=== PATIENT | male | born 1965 | race Caucasian/White ===

== ENCOUNTER 2016-09-08 18:35 | Inpatient (IN) | payer MEDICAID ==
--- NOTE | 2016-09-08 19:02 | ED Physician Chart ---
Chief Complaint/HPI - Patient Information Date Seen:: 09/08/16 Time Seen:: 18:45 Chief Complaint:: Diarrhea History of Present Illness:: onset x 2 days of N/V/D, generalized, crampy, intermittent, Abdominal Pain; pt denies H/As, neck pain, C/P, SOB, A/C, fever, chills, or urinary s/s Allergies:: Allergies Allergy/AdvReac Type Severity Reaction Status Date / Time No Known Allergies Allergy Verified 09/08/16 18:48 Vitals:: Vital Signs - 8 hr 09/08/16 18:48 Temp 99.4 F HR 74 RR 16 BP 104/68 O2 Sat % 97 Historian:: Patient, Family Member Review:: Nurse's Note Reviewed Review of Systems - Review of Systems General/Constitutional: Fever, Chills, No weight loss, No weakness, No diaphoresis, No edema, No loss of appetite Skin: No skin lesions, No rash, No bruising Head: No headache, No light-headedness Eyes: No loss of vision, No pain, No diplopia ENT: No earache, No nasal drainage, No sore throat, No tinnitus Neck: No neck pain, No swelling, No thyromegaly, No stiffness, No mass noted Cardio Vascular: No chest pain, No palpitations, No PND, No orthopnea, No edema Pulmonary: No SOB, No cough, No sputum, No wheezing GI: Nausea, Vomiting, Diarrhea, Pain, No melena, No hematochezia, No constipation, No hematemesis G/U: No dysuria, No frequency, No hematuria, No nacturia Musculoskeletal: No bone or joint pain, No back pain, No muscle pain Endocrine: Polyuria, Polydipsia Psychiatric: No prior psych history, No depression, No anxiety, No suicidal ideation, No homicidal ideation, No auditory hallucination, No visual hallucination Hematopoietic: No bruising, No lymphadenopathy Allergic/Immuno: No urticaria, No angioedema Neurological: No syncope, No focal symptoms, No weakness, No paresthesia, No headache, No seizure, No dizziness, No confusion, No vertigo Past Medical History - Past Medical History Obtainable: Yes Past Medical History: DM Family History: Diabetes Melitus Social History: Non Smoker, No Alcohol, No Drug Use, Single Surgical History: None Psychiatricy History: None Medication: Reviewed Family Medical History - Family Member Father Hx Family Cancer: No Hx Family Congestive Heart Failure: No Hx Family Hypertension: No Hx Family Stroke: No Hx Family Diabetes: No Hx Family AIDS: No Hx Family HIV: No Physical Exam - Physical Examination General/Constitutional: Awake, Well-developed, well-nourished, Alert, No distress, GCS 15, Non-toxic appearing, Ambulatory Head: Atraumatic Eyes: Lids, conjuctiva normal, PERRL, EOMI Skin: Nl inspection, No rash, No skin lesions, No ecchymosis, Well hydrated, No lymphadenopathy ENMT: External ears, nose nl, Nasal exam nl, Lips, teeth, gums nl Neck: Nontender, Full ROM w/o pain, No JVD, No nuchal rigidity, No bruit, No mass, No stridor Respiratory: Nl effort/Exclusion, Clear to Auscultation, No Wheeze/Rhonchi/Rales Cardio Vascular: RRR, No murmur, gallop, rubs, NL S1 S2 GI: No tenderness/rebounding/guarding, No organomegaly, No hernia, Normal BS's, Nondistended, No mass/bruits, No McBurney tenderness : No CVA tenderness Extremities: No tenderness or effusion, Full ROM, normal strength in all extremities, No edema, Normal digits & nails Neuro/Psych: Alert/oriented, DTR's symmetric, Normal sensory exam, Normal motor strength, Judgement/insight normal, Mood normal, Normal gait, No focal deficits Misc: normal gait, Normal back, No paraspinal tenderness Labs/Radiology/EKG Results - Lab Results Results: Glucose: 456; Na+: 132 - EKG Interpretations Rate & Rhythm: NSR Comments:: Non-Specific ST-T Changes ED Septic Shock - . Is Septic Shock (SBP<90, OR Lactate>4 mmol\L) present?: No - <6hrs of presentation: Vital Signs: Vital Signs - 8 hr 09/08/16 18:48 Temp 99.4 F HR 74 RR 16 BP 104/68 O2 Sat % 97 Reassessment (Disposition) - Reassessment Reassessment Condition:: Improved - Diagnosis Diagnosis:: Uncontrolled Diabetes Mellitus; Hyponatremia; Hyperglycemia; DM; AGE; Diarrhea; Vomiting; Gastroenteritis; Diabetic Gastroparesis - Aftercare/Follow up Instructions Aftercare/Follow-Up Instructions:: Counseled pt regarding lab results/diagnosis & need follow up, Counseled pt & family regarding lab results/diagnosis & need follow up - Patient Disposition Discharge/Transfer:: Acute Care w/in this hosp Accepting Physician:: Dr. Calvillo Time Called:: 2139 Time Responded:: 21:40 Admitted to:: Med/Surg Spoke to:: Dr. Calvillo Admitting Medical Physician:: Dr. Calvillo Condition at Disposition:: Stable, Improved
[2016-09-08] MEDS ORDERED: Sodium Chloride 0.9% 1,000 ML IV ONE (19:03)
[2016-09-08 19:20] LABS: % BASOPHILS 0.1 % (0.0-2.0); % EOSINOPHILS 0.1 % (0.0-5.0); % LYMPHOCYTES 10.2 % (20.0-50.0); % MONOCYTES 10.9 % (2.0-10.0); % NEUTROPHILS 78.7 % (40.0-80.0); HEMATOCRIT 38.8 % (39.0-49.0); HEMOGLOBIN 13.1 gm/dL (13.2-17.3); MEAN CELL VOLUME 87.9 fl (80-99); MEAN CORPUSCULAR HEMOGLOBIN 29.8 pg (26.0-30.0); MEAN CORPUSCULAR HGB CONC 33.9 pg (28.0-36.0); MEAN PLATELET VOLUME 9.2 fl; NEUTROPHILE ABSOLUTE 9.2 Th/cmm (1.8-8.0); PLATELET COUNT 185 Th/cmm (150-400); RED BLOOD COUNT 4.42 Mil/cmm (4.30-5.70); RED CELL DISTRIBUTION WIDTH 12.3 % (11.5-20.0); WHITE BLOOD COUNT 11.7 Th/cmm (4.8-10.8)
[2016-09-08 19:38] LABS: TROP I 0.01 ng/mL (0.01-0.05)
[2016-09-08 19:39] LABS: INR 1.06 (0.5-1.4)
[2016-09-08 19:40] LABS: ALB/GLOB RATIO 1.1 (1.0-1.8); ALKALINE PHOSPHATASE 45 U/L (34-104); ANION GAP 12.4 (7.0-16.0); BILIRUBIN,TOTAL 0.9 mg/dL (0.3-1.0); BUN - UREA NITROGEN 36 mg/dL (7-25); BUN/CREATININE RATIO 25.7; CARBON DIOXIDE 26.1 mEq/L (21.0-31.0); CHLORIDE 97 mEq/L (98-107); CHOLESTEROL 151 mg/dL (<200); CREATININE - SERUM 1.4 mg/dL (0.7-1.3); POTASSIUM SERUM 3.5 mEq/L (3.5-5.1); SGOT 10 U/L (13-39); SGPT/ALT 10 U/L (7-52); SODIUM SERUM 132 mEq/L (136-145); TRIGLYCERIDES 112 mg/dL (<150)
[2016-09-08 19:41] LABS: AMYLASE SERUM 36 U/L (29-103); LIPASE 14 U/L (11-82)
[2016-09-08 19:44] LABS: BNP 27.3 pg/mL (5.0-100.0)
[2016-09-08 20:01] LABS: GLUCOSE 456 mg/dL (70-105)
[2016-09-08] MEDS ORDERED: INSULIN HUMAN REGULAR 100 UNITS/ML UNIT SUBQ ONE (20:37)
[2016-09-08] MEDS ORDERED: INSULIN HUMAN REGULAR 100 UNITS/ML UNIT ONE (20:43)
[2016-09-08 22:37] VITALS: BP 126/80
--- NOTE | 2016-09-08 23:30 | Admit Criteria Form ---
Admit Criteria Forms - Admit Criteria Diagnosis: DIABETES Clinical Indications for Admission to Inpatient Care (Place 'X' for any and all applicable criteria): Admission is indicated by presence of ALL (if I & II) or ANY ONE (if III or IV) of the following (1)(2)(3)(4): [ ]I. Diabetes is uncontrolled as indicated by ANY ONE of the following: [ ]a) Diabetic ketoacidosis as indicated by ALL of the following (8): [ ]i) Hyperglycemia (eg, plasma glucose greater than 200 mg/ dL (11.1 mmol/L)) [ ]ii) Acidosis (eg, arterial pH less than 7.30, serum bicarbonate level less than 15 mEq/L (mmol/L)) [ ]iii) Moderate ketonuria or ketonemia [ ]b) Hyperglycemic hyperosmolar state as indicated by ALL of the following(9)(10): [ ]i) Neurologic dysfunction (eg, stupor, coma, hemiparesis , seizure)(13) [ ]ii) Plasma glucose greater than 600 mg/dL (33.3 mmol/L) [ ]iii) Serum osmolality greater than 320 mOsm/kg (mmol/kg) [ ]c) Severe signs or symptoms secondary to hyperglycemia indicated by ANY ONE of the following: [ ]i) Altered mental status(10) [ ]ii) Significant hypovolemia or dehydration [ ]iii) Intractable nausea or vomiting [ ]iv) Unexplained fever or severe infection [ ]v) Severe electrolyte abnormality (eg, hypokalemia, hyperkalemia, hypernatremia) [ ]II. Management at other levels of care (Also use Diabetes: Observation Care as appropriate) is not feasible because of ANY ONE of the following: [ ]a) Condition was not adequately corrected with treatment at other levels of care. [ ]b) Treatment at other levels of care is not appropriate because of condition severity (eg, hyperosmolar coma). [ ]III. Contraindications and/or Inappropriate clinical situations for Observational Care in patients with Diabetes, when ANY ONE of the following is required: [ ]a) Patient require specific diagnostic workup or therapeutic intervention 22 [ ]b) Patient with abnormal vital signs or altered mental status 23 [X ]IV. General contraindications and/or Inappropriate clinical situations for Observational Care in patients with Diabetes, when ANY ONE of the following is required: [X ]a) Prediction of prolongation of LOS based on ANY ONE of the following may be considered as a contraindication for observational care 2, 3, 4, 5, 6, 7, 8, 9, 10, 11 [ ]i) Age > 65 yrs. [ ]ii) Patient arriving by ambulance [ ]iii) Patient with high acuity [ ]iv) Patient requiring vital sign monitoring [X ]v) Patient on IV medication [ ]b) Systolic blood pressures 180mmHg 3,12 [ ]c) Patient with altered mental status including delirium and other alteration of consciousness, (3) [ ]d) Patient whose discharge disposition will be to a detention home or rehabilitation home should not be managed in Emergency Department Observation Unit. CMS rule requires 3 days hospital stay before such placement.3,13 [ ]e) Patient with failure to thrive due to broad array of etiologies 3,16,17 [ ]f) Inability to ambulate 3,14 Extended stay beyond goal length of stay may be needed for(3)(20): [ ]a) Treatment of precipitating causes [ ]b) Development of hypoglycemia [ ]c) Complications of treatment [ ]d) Complications of decompensated diabetes (eg, acute gastric dilatation, persistent metabolic or neurologic derangement) [ ]e) Active Comorbidities [ ]f) Older patients( 65 years or older) The original [facility] content created by [employer] has been revised. The portions of the content which have been revised are identified through the use of italic text or in bold,and [facility] has neither reviewed nor approved the modified material. All other unmodified content is copyright [facility] [employer]. Please see references footnoted in the original [facility] [employer] edition 2016 Admit Criteria Met?: Yes
[2016-09-09] MEDS: D5-0.45NS 1,000 ML IV SCH (06:36)
--- NOTE | 2016-09-09 07:23 | History and Physical ---
History of Present Illness - HPI Chief Complaint: Diarrhea HPI: 51 year old male who presents to [facility] ER for loose stools and diarrheas for the past 2 days with history of nausea, vomiting, diarrhea, abdominal pain. Patient denies any headaches, neck pain, chest pain, shortness of breath, fever or chills or urinary symptoms. Vital Signs: Last Vital Signs Temp 99.9 F 09/09/16 04:00 Pulse 110 09/09/16 04:00 Resp 18 09/09/16 04:00 BP 104/68 09/09/16 04:00 Pulse Ox 93 09/09/16 04:00 Past Medical History Cardiovascular: Report: No Pertinent Hx Pulmonary: Report: No Pertinent Hx ASSOCIATE PROFESSOR OF PATHOLOGY: Report: No Pertinent Hx GI: Report: No Pertinent Hx Psych: Report: No Pertinent Hx Musculoskeletal: Report: No Pertinent Hx Rheumatologic: Report: No pertinent Hx Infectious Disease: Report: No Pertinent Hx Renal/: Report: No Pertinent Hx Endocrine: Report: Diabetes Dermatology: Report: No Pertinent Hx - Past Surgical History Past Surgical History: No pertinent Hx Family Medical History - Family Member Father History Unknown: Yes (diabetes mellitus) Hx Family Cancer: No Hx Family Congestive Heart Failure: No Hx Family Hypertension: No Hx Family Stroke: No Hx Family Diabetes: No Hx Family AIDS: No Hx Family HIV: No Social History Smoke: No Alcohol: None Drugs: None Lives: Alone - Medications Home Medications: Home Medication Medication Instructions Recorded Type Metformin HCl 850 mg PO BID 09/08/16 History - Allergies Allergies/Adverse Reactions: Allergies Allergy/AdvReac Type Severity Reaction Status Date / Time No Known Allergies Allergy Verified 09/08/16 18:48 Review of Systems - Review of Systems Constitutional: Report: Weakness, Malaise Eyes: Report: No Significant ENT: Report: No Significant Respiratory: Report: No Significant Cardiovascular: Report: No Significant Gastrointestinal: Report: Nausea, Vomiting, Abdominal Pain, Diarrhea, Other ( abdominal cramps with intermittent pain) Genitourinary: Report: No Significant Musculoskeletal: Report: No Significant Skin: Report: No Significant Neurological: Report: No Significant Physical Exam - Physical Exam HEENT: Report: Ears Nose Throat within normal limits, Pharnyx within normal limits Neck: Report: Within normal limits Cardiovascular Systems: Report: +s1/s2 noted, Regular, Rate and Rhythm Respiratory: Report: Breath Sounds are within normal limits, Clear to Auscultation of lung rabago Abdomen: Report: Non-tender to palpation Back: Report: Inspection of back is within normal limits. Extremities: Report: Non-tender to palpation. Skin: Report: Color of skin is within normal limits Neuro/Psych: Report: Mood affect is within normal limits, A+Ox3, CN II-XII intact - Lab Results All Lab Results last 24 hours: Laboratory Last Values WBC 11.7 Th/cmm (4.8-10.8) H 09/08/16 19:12 RBC 4.42 Mil/cmm (4.30-5.70) 09/08/16 19:12 Hgb 13.1 gm/dL (13.2-17.3) L 09/08/16 19:12 Hct 38.8 % (39.0-49.0) L 09/08/16 19:12 MCV 87.9 fl (80-99) 09/08/16 19:12 MCH 29.8 pg (26.0-30.0) 09/08/16 19:12 MCHC Differential 33.9 pg (28.0-36.0) 09/08/16 19:12 RDW 12.3 % (11.5-20.0) 09/08/16 19:12 Plt Count 185 Th/cmm (150-400) 09/08/16 19:12 MPV 9.2 fl 09/08/16 19:12 Neutrophils % 78.7 % (40.0-80.0) 09/08/16 19:12 Lymphocytes % 10.2 % (20.0-50.0) L 09/08/16 19:12 Monocytes % 10.9 % (2.0-10.0) H 09/08/16 19:12 Eosinophils % 0.1 % (0.0-5.0) 09/08/16 19:12 Basophils % 0.1 % (0.0-2.0) 09/08/16 19:12 PT 11.0 SECONDS (9.5-11.5) 09/08/16 19:12 INR 1.06 (0.5-1.4) 09/08/16 19:12 Sodium 132 mEq/L (136-145) L 09/08/16 19:12 Potassium 3.5 mEq/L (3.5-5.1) 09/08/16 19:12 Chloride 97 mEq/L (98-107) L 09/08/16 19:12 Carbon Dioxide 26.1 mEq/L (21.0-31.0) 09/08/16 19:12 Anion Gap 12.4 (7.0-16.0) 09/08/16 19:12 BUN 36 mg/dL (7-25) H 09/08/16 19:12 Creatinine 1.4 mg/dL (0.7-1.3) H 09/08/16 19:12 Est GFR ( Amer) > 60.0 ml/min (>90) 09/08/16 19:12 Est GFR (Non-Af Amer) 56.6 ml/min 09/08/16 19:12 BUN/Creatinine Ratio 25.7 09/08/16 19:12 Glucose 456 mg/dL (70-105) H* 09/08/16 19:12 POC Glucose 153 MG/DL (70 - 105) H 09/09/16 06:23 Hemoglobin A1c % 11.9 % (4.0-6.0) H 09/08/16 19:12 Calcium 9.0 mg/dL (8.6-10.3) 09/08/16 19:12 Total Bilirubin 0.9 mg/dL (0.3-1.0) 09/08/16 19:12 AST 10 U/L (13-39) L 09/08/16 19:12 ALT 10 U/L (7-52) 09/08/16 19:12 Alkaline Phosphatase 45 U/L (34-104) 09/08/16 19:12 Creatine Kinase 99 U/L (30-223) 09/08/16 19:12 Troponin I 0.01 ng/mL (0.01-0.05) 09/08/16 19:12 B-Natriuretic Peptide 27.3 pg/mL (5.0-100.0) 09/08/16 19:12 Total Protein 7.7 gm/dL (6.0-8.3) 09/08/16 19:12 Albumin 4.0 gm/dL (4.2-5.5) L 09/08/16 19:12 Globulin 3.7 gm/dL 09/08/16 19:12 Albumin/Globulin Ratio 1.1 (1.0-1.8) 09/08/16 19:12 Triglycerides 112 mg/dL (<150) 09/08/16 19:12 Cholesterol 151 mg/dL (<200) 09/08/16 19:12 LDL Cholesterol Direct 109 mg/dL (75-193) 09/08/16 19:12 HDL Cholesterol 30 mg/dL (23-92) 09/08/16 19:12 Amylase 36 U/L (29-103) 09/08/16 19:12 Lipase 14 U/L (11-82) 09/08/16 19:12 Serum Ketones NEGATIVE (NEGATIVE) 09/08/16 19:12 Laboratory Results - last 24 hr 09/09/16 09/09/16 00:06 06:23 POC Glucose 182 H 153 H - Assessment Assessment: hyperglycemia out of control diabetes mellitus uncontrolled hyponatremia gastroenteritis diabetic gastroparesis vomiting diarrhea - Plan Plan: uncontrolled diabetes mellitus ...accucheck ac hs, ssi, diabetic diet. metformin PO hyponatremia .. repeat labwork...continue IV fluids diarrhea and vomiting ... gastroenteritis ... on IV fluids diabetic gastroparesis ... GI consult, will order KUB
[2016-09-09] MEDS: INSULIN ASPART SLIDING SCALE 100 UNITS/ML UNIT SUBQ SCH ×4 (07:31→22:42)
[2016-09-09 09:47] LABS: ALB/GLOB RATIO 1.2 (1.0-1.8); ALKALINE PHOSPHATASE 37 U/L (34-104); ANION GAP 10.4 (7.0-16.0); BILIRUBIN,TOTAL 0.6 mg/dL (0.3-1.0); BUN - UREA NITROGEN 28 mg/dL (7-25); BUN/CREATININE RATIO 31.1; CALCIUM SERUM 8.6 mg/dL (8.6-10.3); CARBON DIOXIDE 25.9 mEq/L (21.0-31.0); CHLORIDE 103 mEq/L (98-107); CREATININE - SERUM 0.9 mg/dL (0.7-1.3); GLUCOSE 199 mg/dL (70-105); POTASSIUM SERUM 3.3 mEq/L (3.5-5.1); SGOT 10 U/L (13-39); SGPT/ALT 9 U/L (7-52); SODIUM SERUM 136 mEq/L (136-145)
--- NOTE | 2016-09-09 09:53 | Diagnostic Imaging Report ---
KUB single view HISTORY: Abdominal pain. COMPARISON: None FINDINGS: Gas-filled loops of bowel are noted moderate stool. Overall the bowel gas pattern is nonspecific. Degenerative changes of the spine are noted. IMPRESSION: Nonspecific bowel gas pattern. Moderate amount of stool content noted.
--- NOTE | 2016-09-09 09:56 | Diagnostic Imaging Report ---
CHEST X-RAY: AP view INDICATION: pain COMPARISON: None FINDINGS: Mild chronic lung changes are noted. Suboptimal lung volumes are noted. There is no focal consolidation or pleural effusions The heart is normal in size. The osseous structures demonstrate no acute abnormalities. IMPRESSION: Mild chronic lung changes. No focal consolidation identified.
--- NOTE | 2016-09-09 11:05 | Consultation ---
DATE OF CONSULTATION: 09/09/2016 REQUESTING PHYSICIAN: Norman Calvillo M.D. REASON FOR CONSULTATION: Nausea, vomiting, and diarrhea. HISTORY OF PRESENT ILLNESS: A 51-year-old male with history of likely new onset diabetes mellitus out of control. He had 2-3 days of nausea, vomiting, and diarrhea. He also has some vague abdominal pain. He reports having eaten perhaps some bad fish about 2 weeks ago. He initially had constipation and vague abdominal pain and headaches. This eventually resolved, but his other symptoms started a few days ago, and he may have lost a few pounds of weight over the last few days. He denies GI bleeding. He has never had an upper endoscopy or colonoscopy. PAST MEDICAL HISTORY: As above. MEDICATIONS: Here are Tylenol, IV fluids, insulin sliding scale, Glucophage, and Zofran. ALLERGIES: None. SOCIAL HISTORY: No recent tobacco, alcohol or drugs. FAMILY HISTORY: Noncontributory. REVIEW OF SYSTEMS: Negative. PHYSICAL EXAMINATION: VITAL SIGNS: Temperature of 99.0, blood pressure 118/71, pulse of 103, respirations 18, O2 sat is 95%. GENERAL: The patient is well-developed, disheveled male, in no acute distress. CARDIOVASCULAR: Regular rate and rhythm. ABDOMEN: Soft, nontender, nondistended. EXTREMITIES: No clubbing, cyanosis or edema. RECTAL: Deferred. LABORATORY DATA AND IMAGING: WBC 11.7, hemoglobin 13.1, platelet count 185. INR normal. Sodium 136, creatinine normal, initially was 1.4. Liver enzymes normal. Hemoglobin A1c is 11.9 and amylase and lipase were normal. Abdominal KUB shows nonspecific bowel gas pattern with a moderate amount of stool noted. IMPRESSION: 1. Nausea, vomiting, and diarrhea, likely due to diabetes mellitus out of control with resultant gastroparesis and/or autonomic neuropathy, could also be from acute gastroenteritis, less likely peptic ulcer disease, gastritis, or occult neoplasm or colitis. 2. Diabetes mellitus with poor control. RECOMMENDATIONS: 1. Optimize glycemic control. 2. IV fluids. 3. Protonix. 4. Antiemetics. 5. Check stool studies if diarrhea persists. 6. If symptoms of nausea, vomiting, and diarrhea persist, then consider upper endoscopy and colonoscopy once blood sugars are better. Outpatient GI workup is also acceptable. Thank you, Dr. Norman Calvillo for involving us in the care of your patient. If you have any further questions, please call us. JOB# [id number]
[2016-09-09] MEDS ORDERED: Potassium Chloride 20 mEq ER Tab PO ONE (11:21)
--- NOTE | 2016-09-09 13:54 | Consultation ---
DATE OF CONSULTATION: 09/09/2016 AGE: 51. SEX: Male. PHYSICIAN: Dr. Calvillo. CHIEF COMPLAINT: Hallucinations. HISTORY OF PRESENT ILLNESS: The patient with history of schizophrenia. The patient said that he has been hearing voices, but of no command type. The patient said that the voices have been increased. The patient denies any visual hallucinations or delusions. He denies any actual thoughts of suicide or homicide. PAST MEDICAL HISTORY: The patient denies, but the family said that he has history of schizophrenia. SOCIAL HISTORY: The patient lives with his brother. No known alcohol or drug abuse. MENTAL STATUS EXAM: The patient appears his stated age. Anxious. Cooperative. Disheveled. Thought processes are mainly goal directed. The patient denies visual hallucinations, but admits to auditory hallucinations. The patient seems to be paranoid. He denies any suicidal or homicidal ideations. The patient is alert and oriented to time, place, person and situation. ASSESSMENT AND PRIMARY DIAGNOSIS: Chronic paranoid schizophrenia with acute exacerbation. TREATMENT PLAN: We will start the patient on Risperdal and we will adjust the dose. We will monitor psychotropic medications. Thanks to Dr. Calvillo. JOB# [id number]
[2016-09-10] MEDS: D5-0.45NS 1,000 ML IV SCH (03:04)
[2016-09-10] MEDS: INSULIN ASPART SLIDING SCALE 100 UNITS/ML UNIT SUBQ SCH ×3 (06:41→16:43)
[2016-09-10 07:08] LABS: ANION GAP 7.9 (7.0-16.0); BUN - UREA NITROGEN 14 mg/dL (7-25); BUN/CREATININE RATIO 17.5; CALCIUM SERUM 8.3 mg/dL (8.6-10.3); CARBON DIOXIDE 26.8 mEq/L (21.0-31.0); CHLORIDE 102 mEq/L (98-107); CREATININE - SERUM 0.8 mg/dL (0.7-1.3); GLUCOSE 219 mg/dL (70-105); POTASSIUM SERUM 3.7 mEq/L (3.5-5.1); SODIUM SERUM 133 mEq/L (136-145)
[2016-09-10] MEDS ORDERED: D5-0.9%NS 1,000 ML IV SCH (07:38)
--- NOTE | 2016-09-10 07:42 | General Progress Note ---
Subjective - Review of Systems Service Date: 09/10/16 Subjective: Patient was seen and evaluated. He has some improvement this morning of his symptoms. patient to have abdominal ultrasound. Objective - Results Result Diagrams: 09/08/16 19:12 09/10/16 06:14 Recent Labs: Laboratory Last Values WBC 11.7 Th/cmm (4.8-10.8) H 09/08/16 19:12 RBC 4.42 Mil/cmm (4.30-5.70) 09/08/16 19:12 Hgb 13.1 gm/dL (13.2-17.3) L 09/08/16 19:12 Hct 38.8 % (39.0-49.0) L 09/08/16 19:12 MCV 87.9 fl (80-99) 09/08/16 19:12 MCH 29.8 pg (26.0-30.0) 09/08/16 19:12 MCHC Differential 33.9 pg (28.0-36.0) 09/08/16 19:12 RDW 12.3 % (11.5-20.0) 09/08/16 19:12 Plt Count 185 Th/cmm (150-400) 09/08/16 19:12 MPV 9.2 fl 09/08/16 19:12 Neutrophils % 78.7 % (40.0-80.0) 09/08/16 19:12 Lymphocytes % 10.2 % (20.0-50.0) L 09/08/16 19:12 Monocytes % 10.9 % (2.0-10.0) H 09/08/16 19:12 Eosinophils % 0.1 % (0.0-5.0) 09/08/16 19:12 Basophils % 0.1 % (0.0-2.0) 09/08/16 19:12 PT 11.0 SECONDS (9.5-11.5) 09/08/16 19:12 INR 1.06 (0.5-1.4) 09/08/16 19:12 Sodium 133 mEq/L (136-145) L 09/10/16 06:14 Potassium 3.7 mEq/L (3.5-5.1) 09/10/16 06:14 Chloride 102 mEq/L (98-107) 09/10/16 06:14 Carbon Dioxide 26.8 mEq/L (21.0-31.0) 09/10/16 06:14 Anion Gap 7.9 (7.0-16.0) 09/10/16 06:14 BUN 14 mg/dL (7-25) 09/10/16 06:14 Creatinine 0.8 mg/dL (0.7-1.3) 09/10/16 06:14 Est GFR ( Amer) > 60.0 ml/min (>90) 09/10/16 06:14 Est GFR (Non-Af Amer) > 60.0 ml/min 09/10/16 06:14 BUN/Creatinine Ratio 17.5 09/10/16 06:14 Glucose 219 mg/dL (70-105) H 09/10/16 06:14 POC Glucose 220 MG/DL (70 - 105) H 09/10/16 06:40 Hemoglobin A1c % 11.9 % (4.0-6.0) H 09/08/16 19:12 Calcium 8.3 mg/dL (8.6-10.3) L 09/10/16 06:14 Total Bilirubin 0.6 mg/dL (0.3-1.0) 09/09/16 08:40 AST 10 U/L (13-39) L 09/09/16 08:40 ALT 9 U/L (7-52) 09/09/16 08:40 Alkaline Phosphatase 37 U/L (34-104) 09/09/16 08:40 Creatine Kinase 99 U/L (30-223) 09/08/16 19:12 Troponin I 0.01 ng/mL (0.01-0.05) 09/08/16 19:12 B-Natriuretic Peptide 27.3 pg/mL (5.0-100.0) 09/08/16 19:12 Total Protein 6.5 gm/dL (6.0-8.3) 09/09/16 08:40 Albumin 3.5 gm/dL (4.2-5.5) L 09/09/16 08:40 Globulin 3.0 gm/dL 09/09/16 08:40 Albumin/Globulin Ratio 1.2 (1.0-1.8) 09/09/16 08:40 Triglycerides 112 mg/dL (<150) 09/08/16 19:12 Cholesterol 151 mg/dL (<200) 09/08/16 19:12 LDL Cholesterol Direct 109 mg/dL (75-193) 09/08/16 19:12 HDL Cholesterol 30 mg/dL (23-92) 09/08/16 19:12 Amylase 36 U/L (29-103) 09/08/16 19:12 Lipase 14 U/L (11-82) 09/08/16 19:12 TSH 1.10 uIU/ml (0.34-5.60) 09/09/16 08:40 Serum Ketones NEGATIVE (NEGATIVE) 09/08/16 19:12 - Physical Exam Vitals and I&O: Vital Signs Temp 99.7 F 09/10/16 04:00 Pulse 100 09/10/16 04:00 Resp 20 09/10/16 04:00 BP 131/80 09/10/16 04:00 Pulse Ox 996 09/10/16 04:00 Intake & Output 09/09/16 09/10/16 09/10/16 18:59 06:59 18:59 Intake Total 1000 Balance 1000 Weight (lbs) 64.138 kg Intake: Intake, IV Amount 1000 D5-0.45NS 1,000 ml @ 50 1000 mls/hr IV .Q20H [facility] Rx#: [id number] Active Medications: Current Medications Acetaminophen (Tylenol) 650 mg PO Q6H PRN PRN Reason: Pain (Moderate) Stop: 11/08/16 05:54 Last Admin: 09/09/16 16:03 Dose: 650 mg Dextrose/Sodium Chloride (D5-0.9%Ns) 1,000 mls @ 50 mls/hr IV .Q20H [facility] Stop: 11/09/16 07:37 Insulin Aspart (Novolog Insulin Sliding Scale) 0 units SUBQ ACHS JAMSIN PRN Reason: Protocol Stop: 11/08/16 07:29 Last Admin: 09/10/16 06:41 Dose: 4 units Metformin HCl (Glucophage) 850 mg PO BID JASMIN Stop: 11/08/16 08:59 Last Admin: 09/09/16 16:03 Dose: 850 mg Ondansetron HCl (Zofran) 4 mg IV Q6H PRN PRN Reason: Nausea / Vomiting Stop: 11/08/16 05:53 Last Admin: 09/09/16 06:29 Dose: 4 mg Pantoprazole Sodium (Protonix) 40 mg IVP DAILY [facility] Stop: 11/08/16 10:44 Last Admin: 09/09/16 12:09 Dose: 40 mg Risperidone (Risperdal) 0.5 mg PO [facility] PRN Reason: Protocol Stop: 11/08/16 20:59 Last Admin: 09/10/16 04:09 Dose: Not Given General: Alert, Oriented x3 HEENT: Atraumatic, PERRLA Neck: Supple Cardiovascular: Regular rate Lungs: Clear to auscultation Abdomen: Bowel sounds Extremities: Clubbing, Cyanosis, Edema Neurological: Normal gait, Normal speech Assessment/Plan - Assessment Assessment: hyperglycemia out of control diabetes mellitus uncontrolled hyponatremia gastroenteritis diabetic gastroparesis vomiting diarrhea - Plan Plan: uncontrolled diabetes mellitus ...accucheck ac hs, ssi, diabetic diet. metformin PO hyponatremia .. repeat labwork...will change to D5NS@50cc/hr diarrhea and vomiting ... symptomatic relief gastroenteritis ... on IV fluids diabetic gastroparesis ... for abdominal ultrasound
--- NOTE | 2016-09-10 11:21 | Diagnostic Imaging Report ---
Ultrasound abdomen HISTORY: Nausea vomiting, rule out gallbladder or liver disease COMPARISON: None Technique: Sonography of the abdomen was performed in multiple planes. FINDINGS: The liver demonstrates normal echogenicity with no evidence of focal lesions. The liver measures 18.7 cm. A few intraluminal echoes are seen within the gallbladder. The gallbladder wall measures 3 mm. The common bile duct measures 4 mm. Evaluation of the pancreas is limited due to bowel gas. The right kidney measures 11.3 cm. No evidence of focal lesions or hydronephrosis. The left kidney measures 11.2 cm. No evidence of focal lesions or hydronephrosis. The spleen measures 12.6 cm. IMPRESSION: Few Intraluminal echoes in the gallbladder which represents small amount of gallbladder sludge and possible small gallstones. Borderline prominent gallbladder wall is also noted. No pericholecystic fluid. Please correlate with clinical findings. If indicated nuclear medicine HIDA scan may also be obtained for further assessment. Mild hepatomegaly.
--- NOTE | 2016-09-10 14:25 | Progress Notes ---
DATE: 09/10/2016 SUBJECTIVE: Tolerating oral diet better. No nausea or vomiting or diarrhea noted. OBJECTIVE: VITAL SIGNS: Noted. GENERAL: The patient is well-developed, well-nourished male in no acute distress. Alert and oriented x 4. CARDIOVASCULAR: Regular rate and rhythm. ABDOMEN: Soft, nontender, nondistended. EXTREMITIES: No edema. LABORATORY DATA: Creatinine is normal. Blood sugars are now in the 100-200 range. Abdominal ultrasound showed gallbladder sludge versus stones without obvious cholecystitis. Stool wbc was negative. IMPRESSION: 1. Nausea, vomiting, diarrhea, likely due to acute gastroenteritis and her diabetic gastroparesis and/or from diabetes mellitus, out of control. 2. Diabetes mellitus, now better control. RECOMMENDATIONS: 1. Protonix. 2. Antiemetics including Zofran as needed. 3. Advance diet as tolerated. 4. If nausea and vomiting persist, then consider gastric emptying study and/or upper endoscopy. JOB# [id number]
--- NOTE | 2016-09-11 07:49 | Discharge Summary ---
General Discharge Summary - Discharge Summary Date of Admission: 09/09/16 Admitting Diagnosis: Abdominal pain with nausea, vomiting, and diarrhea. Patient Problems: All Active Problems Abdominal pain (Acute) R10.9 Diabetes mellitus (Acute) E11.9 Diabetic gastroparesis (Acute) E11.43, K31.84 Diarrhea (Acute) R19.7 Gastroenteritis (Acute) K52.9 Hyperglycemia (Acute) R73.9 Discharge Date: 09/10/16 Discharge Diagnosis: same as above Laboratory Findings: Laboratory Tests 09/09/16 09/09/16 09/09/16 00:06 06:23 08:40 Sodium Potassium Chloride Carbon Dioxide Anion Gap BUN Creatinine Est GFR ( Amer) Est GFR (Non-Af Amer) BUN/Creatinine Ratio Glucose POC Glucose 182 H 153 H Calcium Total Bilirubin AST ALT Alkaline Phosphatase Total Protein Albumin Globulin Albumin/Globulin Ratio TSH 1.10 Stool Leukocyte 09/09/16 09/09/16 09/09/16 08:40 11:37 16:05 Sodium 136 Potassium 3.3 L Chloride 103 Carbon Dioxide 25.9 Anion Gap 10.4 BUN 28 H Creatinine 0.9 Est GFR ( Amer) > 60.0 Est GFR (Non-Af Amer) > 60.0 BUN/Creatinine Ratio 31.1 Glucose 199 H POC Glucose 170 H 183 H Calcium 8.6 Total Bilirubin 0.6 AST 10 L ALT 9 Alkaline Phosphatase 37 Total Protein 6.5 Albumin 3.5 L Globulin 3.0 Albumin/Globulin Ratio 1.2 TSH Stool Leukocyte 09/09/16 09/10/16 09/10/16 22:38 06:14 06:40 Sodium 133 L Potassium 3.7 Chloride 102 Carbon Dioxide 26.8 Anion Gap 7.9 BUN 14 Creatinine 0.8 Est GFR ( Amer) > 60.0 Est GFR (Non-Af Amer) > 60.0 BUN/Creatinine Ratio 17.5 Glucose 219 H POC Glucose 230 H 220 H Calcium 8.3 L Total Bilirubin AST ALT Alkaline Phosphatase Total Protein Albumin Globulin Albumin/Globulin Ratio TSH Stool Leukocyte 09/10/16 09/10/16 09/10/16 11:25 12:16 16:23 Sodium Potassium Chloride Carbon Dioxide Anion Gap BUN Creatinine Est GFR ( Amer) Est GFR (Non-Af Amer) BUN/Creatinine Ratio Glucose POC Glucose 142 H 191 H Calcium Total Bilirubin AST ALT Alkaline Phosphatase Total Protein Albumin Globulin Albumin/Globulin Ratio TSH Stool Leukocyte NO WBC SEEN Hospital Course: Brief HPI : 51 year old male who presents to [facility] for loose stools and diarrhea for the past 2 days along with nausea vomiting and diarrhea. Patient denies any headaches, neck pain, chest pain, shortness of breath, fever or chills or urinary symptoms. Treatment: Patient improved during his hospital stay. Patient was slightly dehydrated and was given IV fluid hydration. Patient underwent KUB and abdominal US as well as GI evaluation. please see dictated reports. Patient was subsequently discharged in stable condition and was to follow up with his regular physician in 2-3 days. Condition at Discharge: Stable Disposition: PT DISCHARGED HOME Home Medications: Home Medication Medication Instructions Recorded Type Metformin HCl 850 mg PO BID 09/08/16 History risperiDONE [RisperDAL] 0.5 mg PO HS tab 09/10/16 Rx Instructions: Type 2 Diabetes Mellitus, Adult, Abdominal or Pelvic Ultrasound, [id number], Diabetes Meal Planning Guide
[2016-09-11 14:11] LABS: HEP B CORE IGM Negative (Negative); HEP C ANTIBODY <0.1 s/co ratio (0.0-0.9)
== END 2016-09-10 19:00 | disposition home or self-care (01) | DRG 249 ==
LOC: ER 18:35 → MSI 22:07
PROVIDERS: ADMIT Family Medicine; ATTEND Family Medicine
DX: K52.9 Noninfective gastroenteritis and colitis, unspecified (principal); K31.84 Gastroparesis; E11.65 Type 2 diabetes mellitus with hyperglycemia; E11.43 Type 2 diabetes mellitus with diabetic autonomic (poly)neuropathy; F20.0 Paranoid schizophrenia; E87.1 Hypo-osmolality and hyponatremia; Z83.3 Family history of diabetes mellitus; E86.0 Dehydration; Z79.84 Long term (current) use of oral hypoglycemic drugs
CPT/HCPCS: 36415-UA; 71010-TC; 74000-TC; 76700-TC; 80048-TC; 80053-TC; 80061-TC; 80074-90; 82010-TC; 82150-TC; 82550-TC; 82948-90; 83036-90; 83690-TC; 83880-TC; 84443-TC; 84484-TC; 85025-TC; 85610-TC; 89055-TC; 93005; 96374; C9113; J1815; J2405; J7030; J7042; Z7610

== ENCOUNTER 2016-09-16 17:31 | Inpatient (IN) | payer MEDICAID ==
--- NOTE | 2016-09-16 18:23 | ED Physician Chart ---
Chief Complaint/HPI - Patient Information Date Seen:: 09/16/16 Time Seen:: 18:00 Chief Complaint:: difficulty walking History of Present Illness:: Patient said numbness or weakness of his legs last 5 days. Although he is able to walk but states with difficulty only. He's had difficulty urinating for 10 days and been constipated for 5 days. Patient has mid back pain. Patient was admitted to this hospital 8 days ago for elevated blood sugar and what he describes as indigestion. Patient was admitted to [facility] 08/31/2016 for abdominal pain. Patient volunteers that he was exposed to syphilis and gonorrhea about 20 years ago but has never been treated for it. He states that his sexual partner at that time told him she had gonorrhea and syphilis. Allergies:: Allergies Allergy/AdvReac Type Severity Reaction Status Date / Time No Known Allergies Allergy Verified 09/16/16 17:45 Vitals:: Vital Signs - 8 hr 09/16/16 17:31 Temp 97.4 F HR 100 RR 16 BP 117/76 O2 Sat % 97 Historian:: Patient Review of Systems - Review of Systems General/Constitutional: No fever, No chills Skin: No skin lesions Head: No light-headedness Eyes: No loss of vision ENT: No earache Neck: No neck pain, No thyromegaly, No stiffness Cardio Vascular: No chest pain, No palpitations Pulmonary: No SOB, No cough, No sputum GI: No nausea, No vomiting, No pain, No melena, Constipation G/U: Other (difficulty urinating) Musculoskeletal: No bone or joint pain Endocrine: No polyuria, No polydipsia Psychiatric: Prior psych history Hematopoietic: No bruising, No lymphadenopathy Allergic/Immuno: No urticaria Neurological: No syncope, No focal symptoms Past Medical History - Past Medical History Past Medical History: DM, Other (headaches) Family History: Cancer, Other (mother had brain malignancy) Social History: Non Smoker, No Alcohol Surgical History: None Psychiatricy History: Schizophrenia Medication: Reviewed Family Medical History - Family Member Father History Unknown: Yes Hx Family Cancer: No Hx Family Congestive Heart Failure: No Hx Family Hypertension: No Hx Family Stroke: No Hx Family Diabetes: No Hx Family AIDS: No Hx Family HIV: No Physical Exam - Physical Examination General/Constitutional: Well-developed, well-nourished, Alert, No distress Head: Atraumatic Eyes: Lids, conjuctiva normal, PERRL Skin: Nl inspection, No rash, No skin lesions, No ecchymosis, Well hydrated, No lymphadenopathy ENMT: External ears, nose nl, TM canals nl, Nasal exam nl Other ENMT comments:: 4 out of 4 peridontal disease Neck: No nuchal rigidity Respiratory: Nl effort/Exclusion, Clear to Auscultation, No Wheeze/Rhonchi/Rales Cardio Vascular: RRR GI: No tenderness/rebounding/guarding, No organomegaly, No hernia, Normal BS's, Nondistended, No mass/bruits Extremities: No tenderness or effusion Other Extremities comments:: Active straight leg raising of 90 bilaterally; deep tendon reflexes knees and ankles one out of 4. Spine: No tenderness or deformity Neuro/Psych: Alert/oriented, No focal deficits Labs/Radiology/EKG Results - Lab Results Results: Laboratory Results - last 24 hr 09/16/16 09/16/16 09/16/16 18:15 18:26 18:26 WBC 6.6 D RBC 4.07 L Hgb 12.6 L Hct 36.6 L MCV 89.8 MCH 30.9 H MCHC Differential 34.4 RDW 12.2 Plt Count 290 D MPV 9.1 Neutrophils % 62.9 Lymphocytes % 26.6 Monocytes % 9.6 Eosinophils % 0.9 Basophils % 0.0 ESR 64 H Sodium 128 L Potassium 4.2 Chloride 98 Carbon Dioxide 27.5 Anion Gap 6.7 L BUN 26 H Creatinine 1.0 Est GFR ( Amer) > 60.0 Est GFR (Non-Af Amer) > 60.0 BUN/Creatinine Ratio 26.0 Glucose 333 H Calcium 9.6 Urine Source [place] Urine Color YELLOW Urine Clarity CLEAR Urine pH 6.0 Ur Specific [place] 1.010 Urine Protein NEGATIVE Urine Glucose (UA) >=1000 H Urine Ketones NEGATIVE Urine Blood NEGATIVE Urine Nitrate NEGATIVE Urine Bilirubin NEGATIVE Urine Urobilinogen 0.2 Ur Leukocyte Esterase NEGATIVE Urine RBC NONE SEEN Urine WBC 0-2 Ur Epithelial Cells FEW Urine Bacteria FEW Assessment - Assessment General Assessment: I'm concerned about this patient's subjective complaints of weakness and numbness of the lower extremities although his legs do not appear to be weak objectively. I spoke to Dr. Norman Calvillo who will be the admitting physician. ED Septic Shock - . Is Septic Shock (SBP<90, OR Lactate>4 mmol\L) present?: No - <6hrs of presentation: Vital Signs: Vital Signs - 8 hr 09/16/16 17:31 Temp 97.4 F HR 100 RR 16 BP 117/76 O2 Sat % 97 Reassessment (Disposition) - Reassessment Reassessment Condition:: Unchanged - Diagnosis Diagnosis:: Lower extremity weakness and numbness; diabetes; hyperglycemia - Aftercare/Follow up Instructions Aftercare/Follow-Up Instructions:: Refer to Discharge Instructions - Patient Disposition Admitted to:: Med/Surg Spoke to:: Norman Calvillo Admitting Medical Physician:: Norman Calvillo Condition at Disposition:: Stable, Unchanged
[2016-09-16 18:32] LABS: % EOSINOPHILS 0.9 % (0.0-5.0); % LYMPHOCYTES 26.6 % (20.0-50.0); % MONOCYTES 9.6 % (2.0-10.0); % NEUTROPHILS 62.9 % (40.0-80.0); HEMATOCRIT 36.6 % (39.0-49.0); HEMOGLOBIN 12.6 gm/dL (13.2-17.3); MEAN CELL VOLUME 89.8 fl (80-99); MEAN CORPUSCULAR HEMOGLOBIN 30.9 pg (26.0-30.0); MEAN CORPUSCULAR HGB CONC 34.4 pg (28.0-36.0); MEAN PLATELET VOLUME 9.1 fl; NEUTROPHILE ABSOLUTE 4.1 Th/cmm (1.8-8.0); RED BLOOD COUNT 4.07 Mil/cmm (4.30-5.70); RED CELL DISTRIBUTION WIDTH 12.2 % (11.5-20.0)
[2016-09-16 18:53] LABS: ANION GAP 6.7 (7.0-16.0); BUN - UREA NITROGEN 26 mg/dL (7-25); CALCIUM SERUM 9.6 mg/dL (8.6-10.3); CARBON DIOXIDE 27.5 mEq/L (21.0-31.0); CHLORIDE 98 mEq/L (98-107); GLUCOSE 333 mg/dL (70-105); POTASSIUM SERUM 4.2 mEq/L (3.5-5.1); SODIUM SERUM 128 mEq/L (136-145)
[2016-09-16 18:59] LABS: PLATELET COUNT 290 Th/cmm (150-400); WHITE BLOOD COUNT 6.6 Th/cmm (4.8-10.8)
[2016-09-16 19:10] LABS: URINE BILIRUBIN NEGATIVE (NEGATIVE); URINE BLOOD NEGATIVE (NEGATIVE); URINE GLUCOSE (UA) >=1000 mg/dL (NEGATIVE); URINE KETONE NEGATIVE (NEGATIVE); URINE PROTEIN NEGATIVE (NEGATIVE); URINE UROBILINOGEN 0.2 E.U./dL (0.2 - 1.0)
[2016-09-16 19:17] LABS: URINE COLOR YELLOW
[2016-09-16 19:18] LABS: URINE BACTERIA FEW /hpf (NONE SEEN); URINE EPITHELIAL CELLS FEW /lpf (FEW); URINE RBC NONE SEEN /hpf (0-5); URINE WBC 0-2 /hpf (0-5)
[2016-09-16 21:36] VITALS: BP 116/79
[2016-09-16] MEDS: INSULIN ASPART SLIDING SCALE 100 UNITS/ML UNIT SUBQ SCH (23:27)
[2016-09-17] MEDS: Sodium Chloride 0.9% 1,000 ML IV SCH ×2 (01:37→22:32)
[2016-09-17] MEDS: INSULIN ASPART SLIDING SCALE 100 UNITS/ML UNIT SUBQ SCH ×4 (06:43→22:27)
[2016-09-17 07:42] LABS: ANION GAP 8.5 (7.0-16.0); BUN - UREA NITROGEN 18 mg/dL (7-25); CALCIUM SERUM 9.6 mg/dL (8.6-10.3); CARBON DIOXIDE 27.5 mEq/L (21.0-31.0); CHLORIDE 103 mEq/L (98-107); CREATININE - SERUM 0.9 mg/dL (0.7-1.3); GLUCOSE 239 mg/dL (70-105); SODIUM SERUM 135 mEq/L (136-145)
--- NOTE | 2016-09-17 08:29 | History and Physical ---
History of Present Illness - HPI Chief Complaint: Lower extremity weakness and difficulty walking HPI: 51 year old male who presents to [facility] ER for numbness and weakness to his legs for the past 5 days. Patient was noted to walk into the ER unassisted but states difficulty only. Patient has been having difficulty with urination and has been constipated for the past 5 days. Patient was recently discharged last week from the hospital for nausea,vomiting, diarrhea and abdominal pain. Patient was seen by GI at the time. Patient admits that he was admitted to [facility] on 08/31/2016 for abdominal pain. patient states that he has been exposed to syphilis and gonorrhea about 20 years ago but has never been treated for this. He states that his sexual partner at the times told him she had STD's. Vital Signs: Last Vital Signs Temp 96.7 F 09/17/16 04:00 Pulse 86 09/17/16 04:00 Resp 20 09/17/16 04:00 BP 120/75 09/17/16 04:00 Pulse Ox 96 09/17/16 04:00 Past Medical History Cardiovascular: Report: No Pertinent Hx Pulmonary: Report: No Pertinent Hx FOAM FABRICATOR: Report: No Pertinent Hx GI: Report: Constipation Psych: Report: No Pertinent Hx Musculoskeletal: Report: Weakness Rheumatologic: Report: No pertinent Hx Infectious Disease: Report: Other (history of exposure to STDs) Renal/: Report: Other (difficulty with urination) Endocrine: Report: Diabetes Dermatology: Report: No Pertinent Hx - Past Surgical History Past Surgical History: No pertinent Hx Family Medical History - Family Member Father History Unknown: Yes (diabetes) Ethnicity: Living Status: Hx Family Cancer: Yes (MOTHER SIDE) Hx Family Coronary Artery Disease: (UNKNOWN) Hx Family Congestive Heart Failure: (UNKNOWN) Hx Family Hypertension: (UNKNOWN) Hx Family Stroke: (UNKNOWN) Hx Family Diabetes: (UNKNOWN) Hx Family Seizures: (UNKNOWN) Hx Family Dementia: (UNKNOWN) Hx Family AIDS: (UNKNOWN) Hx Family HIV: No Hx Family COPD: (UNKNOWN) Hx Family Hepatitis: (UNKNOWN) Hx Family Psychiatric Problems: (UNKNOWN) Hx Family Tuberculosis: (UNKNOWN) Other Medical History: UNKNOWN Social History Smoke: No Alcohol: None Drugs: None Lives: Alone - Medications Home Medications: Home Medication Medication Instructions Recorded Type Metformin HCl 850 mg PO BID 09/08/16 History - Allergies Allergies/Adverse Reactions: Allergies Allergy/AdvReac Type Severity Reaction Status Date / Time No Known Allergies Allergy Verified 09/16/16 17:45 Review of Systems - Review of Systems Constitutional: Report: Weakness Eyes: Report: No Significant ENT: Report: No Significant Respiratory: Report: No Significant Cardiovascular: Report: No Significant Gastrointestinal: Report: Abdominal Pain, Constipation Genitourinary: Report: Dysuria, Frequency, Incontinence Musculoskeletal: Report: No Significant Skin: Report: No Significant Neurological: Report: Weakness Physical Exam - Physical Exam HEENT: Report: Ears Nose Throat within normal limits, Pharnyx within normal limits Neck: Report: Within normal limits Cardiovascular Systems: Report: +s1/s2 noted, Regular, Rate and Rhythm Respiratory: Report: Breath Sounds are within normal limits Abdomen: Report: Non-tender to palpation - Lab Results All Lab Results last 24 hours: Laboratory Last Values WBC 6.6 Th/cmm (4.8-10.8) D 09/16/16 18:26 RBC 4.07 Mil/cmm (4.30-5.70) L 09/16/16 18:26 Hgb 12.6 gm/dL (13.2-17.3) L 09/16/16 18:26 Hct 36.6 % (39.0-49.0) L 09/16/16 18:26 MCV 89.8 fl (80-99) 09/16/16 18:26 MCH 30.9 pg (26.0-30.0) H 09/16/16 18:26 MCHC Differential 34.4 pg (28.0-36.0) 09/16/16 18:26 RDW 12.2 % (11.5-20.0) 09/16/16 18:26 Plt Count 290 Th/cmm (150-400) D 09/16/16 18:26 MPV 9.1 fl 09/16/16 18:26 Neutrophils % 62.9 % (40.0-80.0) 09/16/16 18:26 Lymphocytes % 26.6 % (20.0-50.0) 09/16/16 18:26 Monocytes % 9.6 % (2.0-10.0) 09/16/16 18:26 Eosinophils % 0.9 % (0.0-5.0) 09/16/16 18:26 Basophils % 0.0 % (0.0-2.0) 09/16/16 18:26 ESR 64 mm/hr (0-20) H 09/16/16 18:26 Sodium 135 mEq/L (136-145) L 09/17/16 06:00 Potassium 4.0 mEq/L (3.5-5.1) 09/17/16 06:00 Chloride 103 mEq/L (98-107) 09/17/16 06:00 Carbon Dioxide 27.5 mEq/L (21.0-31.0) 09/17/16 06:00 Anion Gap 8.5 (7.0-16.0) 09/17/16 06:00 BUN 18 mg/dL (7-25) 09/17/16 06:00 Creatinine 0.9 mg/dL (0.7-1.3) 09/17/16 06:00 Est GFR ( Amer) > 60.0 ml/min (>90) 09/17/16 06:00 Est GFR (Non-Af Amer) > 60.0 ml/min 09/17/16 06:00 BUN/Creatinine Ratio 20.0 09/17/16 06:00 Glucose 239 mg/dL (70-105) H 09/17/16 06:00 POC Glucose 237 MG/DL (70 - 105) H 09/17/16 05:45 Calcium 9.6 mg/dL (8.6-10.3) 09/17/16 06:00 Urine Source MIDSTREAM 09/16/16 18:15 Urine Color YELLOW 09/16/16 18:15 Urine Clarity CLEAR (CLEAR) 09/16/16 18:15 Urine pH 6.0 (4.6 - 8.0) 09/16/16 18:15 Ur Specific [place] 1.010 (1.005-1.030) 09/16/16 18:15 Urine Protein NEGATIVE mg/dL (NEGATIVE) 09/16/16 18:15 Urine Glucose (UA) >=1000 mg/dL (NEGATIVE) H 09/16/16 18:15 Urine Ketones NEGATIVE mg/dL (NEGATIVE) 09/16/16 18:15 Urine Blood NEGATIVE (NEGATIVE) 09/16/16 18:15 Urine Nitrate NEGATIVE (NEGATIVE) 09/16/16 18:15 Urine Bilirubin NEGATIVE (NEGATIVE) 09/16/16 18:15 Urine Urobilinogen 0.2 E.U./dL (0.2 - 1.0) 09/16/16 18:15 Ur Leukocyte Esterase NEGATIVE (NEGATIVE) 09/16/16 18:15 Urine RBC NONE SEEN /hpf (0-5) 09/16/16 18:15 Urine WBC 0-2 /hpf (0-5) 09/16/16 18:15 Ur Epithelial Cells FEW /lpf (FEW) 09/16/16 18:15 Urine Bacteria FEW /hpf (NONE SEEN) 09/16/16 18:15 Laboratory Results - last 24 hr 09/16/16 09/17/16 09/17/16 21:22 05:45 06:00 Sodium 135 L Potassium 4.0 Chloride 103 Carbon Dioxide 27.5 Anion Gap 8.5 BUN 18 Creatinine 0.9 Est GFR ( Amer) > 60.0 Est GFR (Non-Af Amer) > 60.0 BUN/Creatinine Ratio 20.0 Glucose 239 H POC Glucose 232 H 237 H Calcium 9.6 - Assessment Assessment: lower extremity weakness diabetes mellitus not well controlled hyperglycemia abdominal pain constipation - Plan Plan: will repeat labwork will order GI consult will order neuro consult will order infectious disease consult KUB RPR GC/Chlamydia dc Metformin will order glipizide STD check
[2016-09-17 09:13] LABS: CHOLESTEROL 161 mg/dL (<200); TRIGLYCERIDES 192 mg/dL (<150)
[2016-09-17] MEDS ORDERED: Magnesium Citrate 1.75 GM/300 mL Bottle PO ONE (14:11)
[2016-09-17] MEDS: POLYETHYLENE GLYCOL 3350 17 GM PACK PO SCH (14:48)
--- NOTE | 2016-09-18 03:19 | Consultation ---
DATE OF CONSULTATION: 09/17/2016 REQUESTING PHYSICIAN: Norman Calvillo MD. REASON FOR CONSULTATION: Constipation. HISTORY OF PRESENT ILLNESS: A 51-year-old male with admission here last week for nausea and vomiting. An upper endoscopy at that time was unremarkable. He was readmitted for 5 days of constipation and vague abdominal pain. He never had a previous colonoscopy. He also complaining of lower extremity numbness and tingling. He has diabetes mellitus. PAST MEDICAL HISTORY: As above. MEDICATIONS: Here are Tylenol, Glucotrol, insulin sliding scale, MiraLax, and IV fluids. ALLERGIES: None. SOCIAL HISTORY: No recent tobacco, alcohol, or drugs. FAMILY HISTORY: Noncontributory. REVIEW OF SYSTEMS: Negative. PHYSICAL EXAMINATION: VITAL SIGNS: Temperature of 97.0, blood pressure 108/76, pulse of 96, respirations 18, and O2 sats 100% on room air. GENERAL: The patient is a well-developed and well-nourished male in no acute distress. HEENT: Sclerae nonicteric. Oropharynx is clear. CARDIOVASCULAR: Regular rate and rhythm. LUNGS: Clear to auscultation bilaterally. ABDOMEN: Soft, nontender, nondistended. EXTREMITIES: No clubbing, cyanosis, or edema. RECTAL: Deferred. LABORATORY DATA AND IMAGING: Sodium 135, creatinine 0.9. WBC 6.6, hemoglobin 12.6, platelet count is 290. HIV is negative. IMPRESSION: 1. Constipation with vague abdominal pain with no previous colonoscopy. 2. Likely peripheral neuropathy. 3. Diabetes mellitus. RECOMMENDATIONS: 1. Laxatives will be offered. 2. Blood sugar control. 3. Colonoscopy likely in a couple of days if patient is agreeable. Outpatient endoscopic workup is also reasonable. JOB# [id number]
[2016-09-18] MEDS: INSULIN ASPART SLIDING SCALE 100 UNITS/ML UNIT SUBQ SCH ×4 (06:47→21:32)
--- NOTE | 2016-09-18 07:29 | General Progress Note ---
Subjective - Review of Systems Service Date: 09/18/16 Subjective: Patient was seen and examined. Denies any abdominal pain nausea or vomiting this morning. no new complaints. complains of numbness to the lower extremities. Objective - Results Result Diagrams: 09/16/16 18:26 09/17/16 06:00 Recent Labs: Laboratory Last Values WBC 6.6 Th/cmm (4.8-10.8) D 09/16/16 18:26 RBC 4.07 Mil/cmm (4.30-5.70) L 09/16/16 18:26 Hgb 12.6 gm/dL (13.2-17.3) L 09/16/16 18: Hct 36.6 % (39.0-49.0) L 09/16/16 18: MCV 89.8 fl (80-99) 09/16/16 18:26 MCH 30.9 pg (26.0-30.0) H 09/16/16 18: MCHC Differential 34.4 pg (28.0-36.0) 09/16/16 18:26 RDW 12.2 % (11.5-20.0) 09/16/16 18:26 Plt Count 290 Th/cmm (150-400) D 09/16/16 18:26 MPV 9.1 fl 09/16/16 18:26 Neutrophils % 62.9 % (40.0-80.0) 09/16/16 18:26 Lymphocytes % 26.6 % (20.0-50.0) 09/16/16 18: Monocytes % 9.6 % (2.0-10.0) 09/16/16 18:26 Eosinophils % 0.9 % (0.0-5.0) 09/16/16 18:26 Basophils % 0.0 % (0.0-2.0) 09/16/16 18:26 ESR 64 mm/hr (0-20) H 09/16/16 18:26 Sodium 135 mEq/L (136-145) L 09/17/16 06:00 Potassium 4.0 mEq/L (3.5-5.1) 09/17/16 06:00 Chloride 103 mEq/L (98-107) 09/17/16 06:00 Carbon Dioxide 27.5 mEq/L (21.0-31.0) 09/17/16 06:00 Anion Gap 8.5 (7.0-16.0) 09/17/16 06:00 BUN 18 mg/dL (7-25) 09/17/16 06:00 Creatinine 0.9 mg/dL (0.7-1.3) 09/17/16 06:00 Est GFR ( Amer) > 60.0 ml/min (>90) 09/17/16 06:00 Est GFR (Non-Af Amer) > 60.0 ml/min 09/17/16 06:00 BUN/Creatinine Ratio 20.0 09/17/16 06:00 Glucose 239 mg/dL (70-105) H 09/17/16 06:00 POC Glucose 180 MG/DL (70 - 105) H 09/18/16 06:40 Calcium 9.6 mg/dL (8.6-10.3) 09/17/16 06:00 Triglycerides 192 mg/dL (<150) H 09/17/16 06:00 Cholesterol 161 mg/dL (<200) 09/17/16 06:00 LDL Cholesterol Direct 108 mg/dL (75-193) 09/17/16 06:00 HDL Cholesterol 27 mg/dL (23-92) 09/17/16 06:00 TSH 0.91 uIU/ml (0.34-5.60) 09/17/16 06:00 Urine Source MIDSTREAM 09/16/16 18:15 Urine Color YELLOW 09/16/16 18:15 Urine Clarity CLEAR (CLEAR) 09/16/16 18:15 Urine pH 6.0 (4.6 - 8.0) 09/16/16 18:15 Ur Specific [place] 1.010 (1.005-1.030) 09/16/16 18:15 Urine Protein NEGATIVE mg/dL (NEGATIVE) 09/16/16 18:15 Urine Glucose (UA) >=1000 mg/dL (NEGATIVE) H 09/16/16 18:15 Urine Ketones NEGATIVE mg/dL (NEGATIVE) 09/16/16 18:15 Urine Blood NEGATIVE (NEGATIVE) 09/16/16 18:15 Urine Nitrate NEGATIVE (NEGATIVE) 09/16/16 18:15 Urine Bilirubin NEGATIVE (NEGATIVE) 09/16/16 18:15 Urine Urobilinogen 0.2 E.U./dL (0.2 - 1.0) 09/16/16 18:15 Ur Leukocyte Esterase NEGATIVE (NEGATIVE) 09/16/16 18:15 Urine RBC NONE SEEN /hpf (0-5) 09/16/16 18:15 Urine WBC 0-2 /hpf (0-5) 09/16/16 18:15 Ur Epithelial Cells FEW /lpf (FEW) 09/16/16 18:15 Urine Bacteria FEW /hpf (NONE SEEN) 09/16/16 18:15 RPR NONREACTIVE (NONREACTIVE) 09/16/16 18:26 HIV 1&2 Antibody Screen NEGATIVE (NEG) 09/17/16 06:00 - Physical Exam Vitals and I&O: Vital Signs Temp 97.7 F 09/18/16 04:00 Pulse 94 09/18/16 04:00 Resp 18 09/18/16 04:00 BP 133/79 09/18/16 04:00 Pulse Ox 96 09/18/16 04:00 Intake & Output 09/17/16 09/18/16 09/18/16 18:59 06:59 18:59 Intake Total 1000 100 Balance 1000 100 Weight (lbs) 61.961 kg 62.46 kg Intake: Intake, IV Amount 1000 Sodium Chloride 0.9% 1, 1000 000 ml @ 50 mls/hr IV . Q20H [facility] Rx#:[id number] Oral 100 Other: # Voids 3 # Bowel Movements 1 Stool Characteristics Soft Active Medications: Current Medications Acetaminophen (Tylenol) 650 mg PO Q6H PRN PRN Reason: FOR PAIN Stop: 11/16/16 01:24 Glipizide (Glucotrol) 10 mg PO QDAC JASMIN Stop: 11/16/16 08:59 Last Admin: 09/18/16 06:47 Dose: 10 mg Sodium Chloride (Nacl 0.9%) 1,000 mls @ 50 mls/hr IV .Q20H JASMIN Stop: 11/16/16 01:23 Last Admin: 09/17/16 22:32 Dose: 50 mls/hr Insulin Aspart (Novolog Insulin Sliding Scale) 0 units SUBQ ACHS JASMIN PRN Reason: Protocol Stop: 11/15/16 21:05 Last Admin: 09/18/16 06:47 Dose: 2 units Polyethylene Glycol (Miralax) 17 gm PO DAILY JASMIN Stop: 11/16/16 14:14 Last Admin: 09/17/16 14:48 Dose: 17 gm General: Alert, Oriented x3, Cooperative, No acute distress HEENT: Atraumatic, PERRLA, EOMI Neck: Supple Cardiovascular: Regular rate, Normal S1, Normal S2 Lungs: Clear to auscultation Abdomen: Bowel sounds, Soft Extremities: no Clubbing, no Cyanosis, no Edema Assessment/Plan - Problem List Patient Problems: All Active Problems Abdominal pain (Acute) R10.9 Diabetes mellitus (Acute) E11.9 Diabetic gastroparesis (Acute) E11.43, K31.84 Diarrhea (Acute) R19.7 Gastroenteritis (Acute) K52.9 Hyperglycemia (Acute) R73.9 - Assessment Assessment: abdominal pain -- appreciate GI note. patient for possible colonoscopy inpatient versus outpatient. may be reaction to metformin diabetic peripheral neuropathy ... will start patient on neurontin 100mg PO TID Diabetes out of control ... 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 will continue glipizide 10mg PO daily. DC metformin lower extremity weakness ... appreciate workup with neurology. Will awaiting results. std exposure ... appreciate ID note. lab results pending. - Plan Plan: abdominal pain -- appreciate GI note. patient for possible colonoscopy inpatient versus outpatient. may be reaction to metformin diabetic peripheral neuropathy ... will start patient on neurontin 100mg PO TID Diabetes out of control ... 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 will continue glipizide 10mg PO daily. DC metformin lower extremity weakness ... appreciate workup with neurology. Will awaiting results. std exposure ... appreciate ID note. lab results pending Nutritional Asmnt/Malnutr-PDOC - Dietary Evaluation Malnutrition Findings (Please click <Entered> for more info): Nutritional Asmnt/Malnutrition Start: 09/17/16 12: 58 Text: Status: Complete Freq: Document 09/17/16 15:14 [facility] (Rec: 09/17/16 15:28 [facility] [email or web address]) Nutritional Asmnt/Malnutrition Patient General Information Nutritional Screening Consult Diagnosis Lower extremity weakness Pertinent Medical Hx/Surgical Hx Constipation, hx exposure to STD's, DM Subjective Information Nutrition Consult for DM received and completed. Pt is a 51-year-old male admitted with chief complaint of lower extremity weakness and difficulty walking. Pt was awake and alert during time of visit. Pt denies nausea or vomiting but reports constipation for 5 days. Pt declined prune juice. Pt is unsure of wt changes or his UBW. Pt reports that swallowing can be difficulty because it feels stuck in his chest sometimes, but not always. Pt appears well nourished with no signs of muscle or fat depletion. Pt declined diet education. Current Diet Order/ Nutrition Support CCHO-60 GM Patient / S.O Can Pertinent Medications Glucotrol, Novolog, Miralax, NaCl 0.9% Pertinent Labs (09/16) Glucose 333H (09/17) Glucose 239H, Na 135L ( improved), Triglyercides 192H Nutritional Hx/Data Height 1.65 m Height (Calculated Centimeters) 165.1 Current Weight (lbs) 61.961 kg Weight (Calculated Kilograms) 62.0 Weight (Calculated Grams) [address] [place] Body Weight 136 % [place] Body Weight 100 Recent Weight Change No Weight Status Approriate GI Symptoms GI Symptoms Constipation Difficult in: Swallowing Food Allergies No Cultural/Ethnic/[employer]ist Belief No cultural or temple preferences noted. Skin Integrity/Comment: Aaron 21. Skin intact. Current %PO Good (75-100%) Estimated Nutritional Goals BEE in Kcals: Using Current wt Calories/Kcals/Kg Based on current wt 62 kg Kcals Calculated 3438-1807 kcals/day (25-30 kcals/kg) Protein: Using Current wt Protein g/kg: Based on current wt 62 kg Protein Calculated 62 gm/day (1 gm/kg) Fluid: ml 2645-4635 ml/day (30-35 ml/kg) Nutritional Problem 1. Problem Problem Altered nutrition-related laboratory value related to Etiology DM or possible inconsistent carbohydrate intake as evidenced by Signs/Symptoms: admitting glucose 333 mg/dl. Malnutrition Alert Protein-Calorie Malnutrition N/A Is there a minimum of two criteria No selected? Query Text:Check all the applicable criteria. A minimum of two criteria are recommended for diagnosis of either severe or non-severe malnutrition. Malnutrition Related to Morbid Obesity Malnutrition related to morbid obesity No Intervention/Recommendation Recommendations by RD Dietary Education by RD1 Comments 1. Continue with current diet as it is adequate to meet estimated nutritional needs. Provide diet education at follow up, as able. 2. Consider swallow evaluation as pt reports difficulty. 3. Continue with bowel regimen . FNS to provide prune juice PRN. Expected Outcomes/Goals Expected Outcomes/Goals Blood glucose will trend towards desired parameters. Physician Parameters for PEM Normal Weight % 90% - 110% (Normal) Body Mass Index (BMI) 19 - 24 (Normal)
[2016-09-18 07:53] LABS: ANION GAP 8.1 (7.0-16.0); BUN - UREA NITROGEN 12 mg/dL (7-25); BUN/CREATININE RATIO 13.3; CALCIUM SERUM 9.6 mg/dL (8.6-10.3); CARBON DIOXIDE 29.1 mEq/L (21.0-31.0); CHLORIDE 100 mEq/L (98-107); CREATININE - SERUM 0.9 mg/dL (0.7-1.3); GLUCOSE 190 mg/dL (70-105); POTASSIUM SERUM 4.2 mEq/L (3.5-5.1); SODIUM SERUM 133 mEq/L (136-145)
--- NOTE | 2016-09-18 08:30 | Consultation ---
DATE OF CONSULTATION: 09/17/2016 HISTORY OF PRESENT ILLNESS: A 51-year-old. The patient complains of numbness in the legs, some weakness. He says he is able to walk, but states difficulty. The patient has had difficulty urinating for 10 days. He has constipation. The patient complained of back pain according the ER. ____ the patient ____ much back pain. The patient complains of numbness going from about the knees downwards. PAST MEDICAL HISTORY: The patient has exposure to syphilis and gonorrhea. The patient was in [facility] on 08/[facility]/2016 for abdominal pain. The patient has a history of diabetes. REVIEW OF SYSTEMS: Vision is okay. No weakness in the arms. He will move the legs, numbness as above. No chest pain, no shortness of breath. No cough, sputum, or hemoptysis. Speech is okay. MEDICATIONS: Metformin. ALLERGIES: NONE KNOWN. PHYSICAL EXAMINATION: VITAL SIGNS: Temperature 98.2, blood pressure 130/70, pulse is 74. NECK: Supple, no bruits. HEART: Sounds S1, S2. LUNGS: Clear. NEUROLOGIC: The patient is awake, alert. He answers questions. Speech is normal. Cranial: Pupils react to light. Full eye movement. No nystagmus. No facial weakness. Motor: The patient will lift both arms up. EXTREMITIES: Lower extremity; tone is okay, may be slightly increased. The patient lifts both legs approximately to about 4/4+. Foot flexion and extension about 4+. Knees are about 4+. Reflexes about 1 in the upper extremity, ____ is 1; ankles -1 . Gait is able to get up and walk. IMPRESSION: 1. Paresthesia. 2. Paraparesis. 3. Diabetes. MANAGEMENT: The patient will have an MRI of the spine, cervical, thoracic, and lumbar spine. Possibly may need LP. Lab studies ____. JOB# [id number]
[2016-09-18] MEDS: POLYETHYLENE GLYCOL 3350 17 GM PACK PO SCH (08:59)
--- NOTE | 2016-09-18 13:52 | Consultation ---
DATE OF CONSULTATION: 09/17/2016 PRIMARY CARE PHYSICIAN: Dr. Calvillo. REASON FOR CONSULTATION: This 51-year-old male was brought to the Emergency with complaint of weakness of both legs for 5 days. HISTORY OF PRESENT ILLNESS: The patient has a history of exposure to STD and syphilis. RPR was sent also. The patient has been constipated, problem urinating. The patient evaluated in the ER and admitted to the hospital. Infectious consultation was called, RPR is pending. PAST MEDICAL HISTORY: Diabetes, recurrent abdominal pain. FAMILY HISTORY: Negative. SOCIAL HISTORY: Nonsmoker. REVIEW OF SYSTEMS: A 14-point review of system negative. PHYSICAL EXAMINATION: GENERAL: The patient is alert, awake, not in distress. VITAL SIGNS: Normal vital signs. HEENT: Mild pallor, no icterus or plaque. NECK: Supple. No thyromegaly. LUNGS: Breath sounds bilateral vesicular. CARDIOVASCULAR: S1 and S2. ABDOMEN: Soft. Bowel sounds present. LYMPHATICS: No ____ cervical lymph nodes. LABORATORY DATA: White count is 6000, hemoglobin is ____, platelets 290. UA shows more than 1000 glucose. Serology, RPR sent. HIV screen is negative. DIAGNOSES: Exposure to syphilis, type 2 diabetes. PLAN: To wait for RPR and will send further antibiotics, Accu-Chek to control diabetes. Rest of the care as ordered in [facility]. Thank you, Dr. Calvillo for this consultation. JOB# [id number]
[2016-09-18 14:12] LABS: HEP B CORE IGM Negative (Negative); HEP C ANTIBODY <0.1 s/co ratio (0.0-0.9)
[2016-09-18] MEDS: Sodium Chloride 0.9% 1,000 ML IV SCH (18:01)
[2016-09-19] MEDS: INSULIN ASPART SLIDING SCALE 100 UNITS/ML UNIT SUBQ SCH ×4 (06:39→21:37)
--- NOTE | 2016-09-19 07:56 | General Progress Note ---
Subjective - Review of Systems Service Date: 09/19/16 Subjective: Patient was seen and examined. Denies any abdominal pain nausea or vomiting this morning. no new complaints. complains of numbness to the lower extremities. Patient to be scheduled for MRI Head with Neurology for weakness and fatigue and Colonoscopy with GI for abdominal pain. Objective - Results Result Diagrams: 09/16/16 18:26 09/18/16 05:23 Recent Labs: Laboratory Last Values WBC 6.6 Th/cmm (4.8-10.8) D 09/16/16 18:26 RBC 4.07 Mil/cmm (4.30-5.70) L 09/16/16 18:26 Hgb 12.6 gm/dL (13.2-17.3) L 09/16/16 18:26 Hct 36.6 % (39.0-49.0) L 09/16/16 18:26 MCV 89.8 fl (80-99) 09/16/16 18:26 MCH 30.9 pg (26.0-30.0) H 09/16/16 18:26 MCHC Differential 34.4 pg (28.0-36.0) 09/16/16 18:26 RDW 12.2 % (11.5-20.0) 09/16/16 18:26 Plt Count 290 Th/cmm (150-400) D 09/16/16 18:26 MPV 9.1 fl 09/16/16 18:26 Neutrophils % 62.9 % (40.0-80.0) 09/16/16 18:26 Lymphocytes % 26.6 % (20.0-50.0) 09/16/16 18:26 Monocytes % 9.6 % (2.0-10.0) 09/16/16 18:26 Eosinophils % 0.9 % (0.0-5.0) 09/16/16 18:26 Basophils % 0.0 % (0.0-2.0) 09/16/16 18:26 ESR 35 mm/hr (0-20) H 09/18/16 05:23 Sodium 133 mEq/L (136-145) L 09/18/16 05:23 Potassium 4.2 mEq/L (3.5-5.1) 09/18/16 05:23 Chloride 100 mEq/L (98-107) 09/18/16 05:23 Carbon Dioxide 29.1 mEq/L (21.0-31.0) 09/18/16 05:23 Anion Gap 8.1 (7.0-16.0) 09/18/16 05:23 BUN 12 mg/dL (7-25) 09/18/16 05:23 Creatinine 0.9 mg/dL (0.7-1.3) 09/18/16 05:23 Est GFR ( Amer) > 60.0 ml/min (>90) 09/18/16 05:23 Est GFR (Non-Af Amer) > 60.0 ml/min 09/18/16 05:23 BUN/Creatinine Ratio 13.3 09/18/16 05:23 Glucose 190 mg/dL (70-105) H 09/18/16 05:23 POC Glucose 123 MG/DL (70 - 105) H 09/19/16 05:55 Calcium 9.6 mg/dL (8.6-10.3) 09/18/16 05:23 C-Reactive Protein < 0.2 mg/dL (0.0-0.9) 09/18/16 05:23 Triglycerides 192 mg/dL (<150) H 09/17/16 06:00 Cholesterol 161 mg/dL (<200) 09/17/16 06:00 LDL Cholesterol Direct 108 mg/dL (75-193) 09/17/16 06:00 HDL Cholesterol 27 mg/dL (23-92) 09/17/16 06:00 TSH 1.32 uIU/ml (0.34-5.60) 09/18/16 05:23 Urine Source MIDSTREAM 09/16/16 18:15 Urine Color YELLOW 09/16/16 18:15 Urine Clarity CLEAR (CLEAR) 09/16/16 18:15 Urine pH 6.0 (4.6 - 8.0) 09/16/16 18:15 Ur Specific [place] 1.010 (1.005-1.030) 09/16/16 18:15 Urine Protein NEGATIVE mg/dL (NEGATIVE) 09/16/16 18:15 Urine Glucose (UA) >=1000 mg/dL (NEGATIVE) H 09/16/16 18:15 Urine Ketones NEGATIVE mg/dL (NEGATIVE) 09/16/16 18:15 Urine Blood NEGATIVE (NEGATIVE) 09/16/16 18:15 Urine Nitrate NEGATIVE (NEGATIVE) 09/16/16 18:15 Urine Bilirubin NEGATIVE (NEGATIVE) 09/16/16 18:15 Urine Urobilinogen 0.2 E.U./dL (0.2 - 1.0) 09/16/16 18:15 Ur Leukocyte Esterase NEGATIVE (NEGATIVE) 09/16/16 18:15 Urine RBC NONE SEEN /hpf (0-5) 09/16/16 18:15 Urine WBC 0-2 /hpf (0-5) 09/16/16 18:15 Ur Epithelial Cells FEW /lpf (FEW) 09/16/16 18:15 Urine Bacteria FEW /hpf (NONE SEEN) 09/16/16 18:15 RPR NONREACTIVE (NONREACTIVE) 09/16/16 18:26 Hepatitis A IgM Ab Negative (Negative) 09/17/16 06:00 Hep Bs Antigen Negative (Negative) 09/17/16 06:00 Hep B Core IgM Ab Negative (Negative) 09/17/16 06:00 Hepatitis C Antibody <0.1 s/co ratio (0.0-0.9) 09/17/16 06:00 HIV 1&2 Antibody Screen NEGATIVE (NEG) 09/17/16 06:00 - Physical Exam Vitals and I&O: Vital Signs Temp 98.4 F 09/19/16 04:00 Pulse 71 09/19/16 04:00 Resp 20 09/19/16 04:00 BP 118/75 09/19/16 04:00 Pulse Ox 97 09/19/16 04:00 Intake & Output 09/18/16 09/19/16 09/19/16 18:59 06:59 18:59 Intake Total 1074.167 300 Balance 1074.167 300 Weight (lbs) 62.46 kg 62.369 kg Intake: Intake, IV Amount 974.167 Sodium Chloride 0.9% 1, 974.167 000 ml @ 50 mls/hr IV . Q20H [facility] Rx#:[id number] Oral 100 300 Other: # Voids 3 3 # Bowel Movements 1 Stool Characteristics Soft Soft Active Medications: Current Medications Acetaminophen (Tylenol) 650 mg PO Q6H PRN PRN Reason: FOR PAIN Stop: 11/16/16 01:24 Gabapentin (Neurontin) 100 mg PO TID JASMIN Stop: 11/17/16 08:59 Last Admin: 09/18/16 21:01 Dose: 100 mg Glipizide (Glucotrol) 10 mg PO QDAC [facility] Stop: 11/16/16 08:59 Last Admin: 09/19/16 06:38 Dose: 10 mg Sodium Chloride (Nacl 0.9%) 1,000 mls @ 50 mls/hr IV .Q20H [facility] Stop: 11/16/16 01:23 Last Admin: 09/18/16 18:01 Dose: 50 mls/hr Insulin Aspart (Novolog Insulin Sliding Scale) 0 units SUBQ ACHS [facility] PRN Reason: Protocol Stop: 11/15/16 21:05 Last Admin: 09/19/16 06:39 Dose: Not Given Polyethylene Glycol (Miralax) 17 gm PO DAILY [facility] Stop: 11/16/16 14:14 Last Admin: 09/18/16 08:59 Dose: 17 gm General: Alert, Oriented x3, Cooperative, No acute distress HEENT: Atraumatic, PERRLA, EOMI Neck: Supple Cardiovascular: Regular rate, Normal S1, Normal S2 Lungs: Clear to auscultation Abdomen: Bowel sounds, Soft Extremities: no Clubbing, no Cyanosis, no Edema Assessment/Plan - Problem List Patient Problems: All Active Problems Abdominal pain (Acute) R10.9 Diabetes mellitus (Acute) E11.9 Diabetic gastroparesis (Acute) E11.43, K31.84 Diarrhea (Acute) R19.7 Gastroenteritis (Acute) K52.9 Hyperglycemia (Acute) R73.9 - Assessment Assessment: abdominal pain -- appreciate GI note. patient for possible colonoscopy inpatient versus outpatient. may be reaction to metformin diabetic peripheral neuropathy ... will start patient on neurontin 100mg PO TID Diabetes out of control ... will order diabetic education with plugging machine operator. will continue glipizide 10mg PO daily. DC metformin lower extremity weakness ... appreciate workup with neurology. Will awaiting results. std exposure ... appreciate ID note. lab results pending. - Plan Plan: abdominal pain -- appreciate GI note. Inpatient versus outpatient. may be reaction to metformin. For colonoscopy. diabetic peripheral neuropathy ... will start patient on neurontin 100mg PO TID Diabetes out of control ... will order diabetic education with plugging machine operator. will continue glipizide 10mg PO daily. DC metformin lower extremity weakness ... appreciate workup with neurology. Will awaiting results. For MRI head this morning. std exposure ... appreciate ID note. lab results pending Nutritional Asmnt/Malnutr-PDOC - Dietary Evaluation Malnutrition Findings (Please click <Entered> for more info): Nutritional Asmnt/Malnutrition Start: 09/17/16 12: 58 Text: Status: Complete Freq: Document 09/17/16 15:14 [facility] (Rec: 09/17/16 15:28 [facility] [email or web address]) Nutritional Asmnt/Malnutrition Patient General Information Nutritional Screening Consult Diagnosis Lower extremity weakness Pertinent Medical Hx/Surgical Hx Constipation, hx exposure to STD's, DM Subjective Information Nutrition Consult for DM received and completed. Pt is a 51-year-old male admitted with chief complaint of lower extremity weakness and difficulty walking. Pt was awake and alert during time of visit. Pt denies nausea or vomiting but reports constipation for 5 days. Pt declined prune juice. Pt is unsure of wt changes or his UBW. Pt reports that swallowing can be difficulty because it feels stuck in his chest sometimes, but not always. Pt appears well nourished with no signs of muscle or fat depletion. Pt declined diet education. Current Diet Order/ Nutrition Support CCHO-60 GM Patient / S.O Can Pertinent Medications Glucotrol, Novolog, Miralax, NaCl 0.9% Pertinent Labs (09/16) Glucose 333H (09/17) Glucose 239H, Na 135L ( improved), Triglyercides 192H Nutritional Hx/Data Height 1.65 m Height (Calculated Centimeters) 165.1 Current Weight (lbs) 61.961 kg Weight (Calculated Kilograms) 62.0 Weight (Calculated Grams) 75863.7 [place] Body Weight 136 % [place] Body Weight 100 Recent Weight Change No Weight Status Approriate GI Symptoms GI Symptoms Constipation Difficult in: Swallowing Food Allergies No Cultural/Ethnic/Gnosticism Belief No cultural or adventism preferences noted. Skin Integrity/Comment: [place]. Skin intact. Current %PO Good (75-100%) Estimated Nutritional Goals BEE in Kcals: Using Current wt Calories/Kcals/Kg Based on current wt 62 kg Kcals Calculated 5687-3971 kcals/day (25-30 kcals/kg) Protein: Using Current wt Protein g/kg: Based on current wt 62 kg Protein Calculated 62 gm/day (1 gm/kg) Fluid: ml 9367-9927 ml/day (30-35 ml/kg) Nutritional Problem 1. Problem Problem Altered nutrition-related laboratory value related to Etiology DM or possible inconsistent carbohydrate intake as evidenced by Signs/Symptoms: admitting glucose 333 mg/dl. Malnutrition Alert Protein-Calorie Malnutrition N/A Is there a minimum of two criteria No selected? Query Text:Check all the applicable criteria. A minimum of two criteria are recommended for diagnosis of either severe or non-severe malnutrition. Malnutrition Related to Morbid Obesity Malnutrition related to morbid obesity No Intervention/Recommendation Recommendations by RD Dietary Education by RD1 Comments 1. Continue with current diet as it is adequate to meet estimated nutritional needs. Provide diet education at follow up, as able. 2. Consider swallow evaluation as pt reports difficulty. 3. Continue with bowel regimen . FNS to provide prune juice PRN. Expected Outcomes/Goals Expected Outcomes/Goals Blood glucose will trend towards desired parameters. Physician Parameters for PEM Normal Weight % 90% - 110% (Normal) Body Mass Index (BMI) 19 - 24 (Normal)
[2016-09-19] MEDS: POLYETHYLENE GLYCOL 3350 17 GM PACK PO SCH (08:58)
[2016-09-19] MEDS: Sodium Chloride 0.9% 1,000 ML IV SCH (13:30)
--- NOTE | 2016-09-19 17:06 | Infectious Disease Prog Note ---
Infectious Disease Subjective - Review of Systems Service Date: 09/19/16 Subjective: cc paraPARESIS HPI- SEEN BY NEURO ROS NO DFEVER O/E VSS CJEST CLEAR ABD SOFT WEAL LE DX PARAPARESID PLAN W/U IN PROGRESS Infectious Disease Objective - Results Result Diagrams: 09/16/16 18:26 09/18/16 05:23 Recent Labs: Laboratory Last Values WBC 6.6 Th/cmm (4.8-10.8) D 09/16/16 18:26 RBC 4.07 Mil/cmm (4.30-5.70) L 09/16/16 18:26 Hgb 12.6 gm/dL (13.2-17.3) L 09/16/16 18:26 Hct 36.6 % (39.0-49.0) L 09/16/16 18:26 MCV 89.8 fl (80-99) 09/16/16 18:26 MCH 30.9 pg (26.0-30.0) H 09/16/16 18:26 MCHC Differential 34.4 pg (28.0-36.0) 09/16/16 18:26 RDW 12.2 % (11.5-20.0) 09/16/16 18:26 Plt Count 290 Th/cmm (150-400) D 09/16/16 18:26 MPV 9.1 fl 09/16/16 18:26 Neutrophils % 62.9 % (40.0-80.0) 09/16/16 18:26 Lymphocytes % 26.6 % (20.0-50.0) 09/16/16 18:26 Monocytes % 9.6 % (2.0-10.0) 09/16/16 18:26 Eosinophils % 0.9 % (0.0-5.0) 09/16/16 18:26 Basophils % 0.0 % (0.0-2.0) 09/16/16 18:26 ESR 35 mm/hr (0-20) H 09/18/16 05:23 Sodium 133 mEq/L (136-145) L 09/18/16 05:23 Potassium 4.2 mEq/L (3.5-5.1) 09/18/16 05:23 Chloride 100 mEq/L (98-107) 09/18/16 05:23 Carbon Dioxide 29.1 mEq/L (21.0-31.0) 09/18/16 05:23 Anion Gap 8.1 (7.0-16.0) 09/18/16 05:23 BUN 12 mg/dL (7-25) 09/18/16 05:23 Creatinine 0.9 mg/dL (0.7-1.3) 09/18/16 05:23 Est GFR ( Amer) > 60.0 ml/min (>90) 09/18/16 05:23 Est GFR (Non-Af Amer) > 60.0 ml/min 09/18/16 05:23 BUN/Creatinine Ratio 13.3 09/18/16 05:23 Glucose 190 mg/dL (70-105) H 09/18/16 05:23 POC Glucose 102 MG/DL (70 - 105) 09/19/16 16:17 Calcium 9.6 mg/dL (8.6-10.3) 09/18/16 05:23 C-Reactive Protein < 0.2 mg/dL (0.0-0.9) 09/18/16 05:23 Triglycerides 192 mg/dL (<150) H 09/17/16 06:00 Cholesterol 161 mg/dL (<200) 09/17/16 06:00 LDL Cholesterol Direct 108 mg/dL (75-193) 09/17/16 06:00 HDL Cholesterol 27 mg/dL (23-92) 09/17/16 06:00 Free T4 1.40 ng/dL (0.82-1.77) 09/18/16 05:23 TSH 1.32 uIU/ml (0.34-5.60) 09/18/16 05:23 Urine Source MIDSTREAM 09/16/16 18:15 Urine Color YELLOW 09/16/16 18:15 Urine Clarity CLEAR (CLEAR) 09/16/16 18:15 Urine pH 6.0 (4.6 - 8.0) 09/16/16 18:15 Ur Specific [place] 1.010 (1.005-1.030) 09/16/16 18:15 Urine Protein NEGATIVE mg/dL (NEGATIVE) 09/16/16 18:15 Urine Glucose (UA) >=1000 mg/dL (NEGATIVE) H 09/16/16 18:15 Urine Ketones NEGATIVE mg/dL (NEGATIVE) 09/16/16 18:15 Urine Blood NEGATIVE (NEGATIVE) 09/16/16 18:15 Urine Nitrate NEGATIVE (NEGATIVE) 09/16/16 18:15 Urine Bilirubin NEGATIVE (NEGATIVE) 09/16/16 18:15 Urine Urobilinogen 0.2 E.U./dL (0.2 - 1.0) 09/16/16 18:15 Ur Leukocyte Esterase NEGATIVE (NEGATIVE) 09/16/16 18:15 Urine RBC NONE SEEN /hpf (0-5) 09/16/16 18:15 Urine WBC 0-2 /hpf (0-5) 09/16/16 18:15 Ur Epithelial Cells FEW /lpf (FEW) 09/16/16 18:15 Urine Bacteria FEW /hpf (NONE SEEN) 09/16/16 18:15 RPR NONREACTIVE (NONREACTIVE) 09/16/16 18:26 Hepatitis A IgM Ab Negative (Negative) 09/17/16 06:00 Hep Bs Antigen Negative (Negative) 09/17/16 06:00 Hep B Core IgM Ab Negative (Negative) 09/17/16 06:00 Hepatitis C Antibody <0.1 s/co ratio (0.0-0.9) 09/17/16 06:00 HIV 1&2 Antibody Screen NEGATIVE (NEG) 09/17/16 06:00 - Physical Exam Vitals and I&O: Vital Signs Temp 96.7 F 09/19/16 08:00 Pulse 98 09/19/16 16:54 Resp 19 09/19/16 08:00 BP 133/92 09/19/16 08:00 Pulse Ox 95 09/19/16 08:00 Intake & Output 09/18/16 09/19/16 09/19/16 18:59 06:59 18:59 Intake Total 1074.167 300 974.167 Balance 1074.167 300 974.167 Weight (lbs) 62.46 kg 62.369 kg Intake: Intake, IV Amount 974.167 974.167 Sodium Chloride 0.9% 1, 974.167 974.167 000 ml @ 50 mls/hr IV . Q20H [facility] Rx#:[id number] Oral 100 300 Other: # Voids 3 3 # Bowel Movements 1 Stool Characteristics Soft Soft Active Medications: Current Medications Acetaminophen (Tylenol) 650 mg PO Q6H PRN PRN Reason: FOR PAIN Stop: 11/16/16 01:24 Gabapentin (Neurontin) 100 mg PO TID [facility] Stop: 11/17/16 08:59 Last Admin: 09/19/16 13:30 Dose: 100 mg Glipizide (Glucotrol) 10 mg PO QDAC [facility] Stop: 11/16/16 08:59 Last Admin: 09/19/16 06:38 Dose: 10 mg Sodium Chloride (Nacl 0.9%) 1,000 mls @ 50 mls/hr IV .Q20H [facility] Stop: 11/16/16 01:23 Last Admin: 09/19/16 13:30 Dose: 50 mls/hr Insulin Aspart (Novolog Insulin Sliding Scale) 0 units SUBQ ACHS [facility] PRN Reason: Protocol Stop: 11/15/16 21:05 Last Admin: 09/19/16 16:23 Dose: Not Given Polyethylene Glycol (Miralax) 17 gm PO DAILY [facility] Stop: 11/16/16 14:14 Last Admin: 09/19/16 08:58 Dose: 17 gm Infectious Disease Assmt/Plan - Problem List Patient Problems: All Active Problems Abdominal pain (Acute) R10.9 Diabetes mellitus (Acute) E11.9 Diabetic gastroparesis (Acute) E11.43, K31.84 Diarrhea (Acute) R19.7 Gastroenteritis (Acute) K52.9 Hyperglycemia (Acute) R73.9 Nutritional Asmnt/Malnutr-PDOC - Dietary Evaluation Malnutrition Findings (Please click <Entered> for more info): Nutritional Asmnt/Malnutrition Start: 09/17/16 12: 58 Text: Status: Complete Freq: Document 09/17/16 15:14 [facility] (Rec: 09/17/16 15:28 [facility] [email or web address]) Nutritional Asmnt/Malnutrition Patient General Information Nutritional Screening Consult Diagnosis Lower extremity weakness Pertinent Medical Hx/Surgical Hx Constipation, hx exposure to STD's, DM Subjective Information Nutrition Consult for DM received and completed. Pt is a 51-year-old male admitted with chief complaint of lower extremity weakness and difficulty walking. Pt was awake and alert during time of visit. Pt denies nausea or vomiting but reports constipation for 5 days. Pt declined prune juice. Pt is unsure of wt changes or his UBW. Pt reports that swallowing can be difficulty because it feels stuck in his chest sometimes, but not always. Pt appears well nourished with no signs of muscle or fat depletion. Pt declined diet education. Current Diet Order/ Nutrition Support [facility]-60 GM Patient / S.O Can Pertinent Medications Glucotrol, Novolog, Miralax, NaCl 0.9% Pertinent Labs (09/16) Glucose 333H (09/17) Glucose 239H, Na 135L ( improved), Triglyercides 192H Nutritional Hx/Data Height 1.65 m Height (Calculated Centimeters) 165.1 Current Weight (lbs) 61.961 kg Weight (Calculated Kilograms) 62.0 Weight (Calculated Grams) 94662.7 [place] Body Weight 136 % [place] Body Weight 100 Recent Weight Change No Weight Status Approriate GI Symptoms GI Symptoms Constipation Difficult in: Swallowing Food Allergies No Cultural/Ethnic/Mormon Belief No cultural or mormon preferences noted. Skin Integrity/Comment: Aaron 21. Skin intact. Current %PO Good (75-100%) Estimated Nutritional Goals BEE in Kcals: Using Current wt Calories/Kcals/Kg Based on current wt 62 kg Kcals Calculated 6746-0726 kcals/day (25-30 kcals/kg) Protein: Using Current wt Protein g/kg: Based on current wt 62 kg Protein Calculated 62 gm/day (1 gm/kg) Fluid: ml 2808-2323 ml/day (30-35 ml/kg) Nutritional Problem 1. Problem Problem Altered nutrition-related laboratory value related to Etiology DM or possible inconsistent carbohydrate intake as evidenced by Signs/Symptoms: admitting glucose 333 mg/dl. Malnutrition Alert Protein-Calorie Malnutrition N/A Is there a minimum of two criteria No selected? Query Text:Check all the applicable criteria. A minimum of two criteria are recommended for diagnosis of either severe or non-severe malnutrition. Malnutrition Related to Morbid Obesity Malnutrition related to morbid obesity No Intervention/Recommendation Recommendations by RD Dietary Education by RD1 Comments 1. Continue with current diet as it is adequate to meet estimated nutritional needs. Provide diet education at follow up, as able. 2. Consider swallow evaluation as pt reports difficulty. 3. Continue with bowel regimen . FNS to provide prune juice PRN. Expected Outcomes/Goals Expected Outcomes/Goals Blood glucose will trend towards desired parameters. Physician Parameters for PEM Normal Weight % 90% - 110% (Normal) Body Mass Index (BMI) 19 - 24 (Normal)
[2016-09-19 18:54] LABS: INR 1.03 (0.5-1.4); PROTHROMBIN TIME (TEST) 10.7 SECONDS (9.5-11.5)
[2016-09-20 06:32] LABS: % BASOPHILS 0.3 % (0.0-2.0); % EOSINOPHILS 0.6 % (0.0-5.0); % LYMPHOCYTES 25.2 % (20.0-50.0); % MONOCYTES 5.9 % (2.0-10.0); HEMATOCRIT 34.7 % (39.0-49.0); HEMOGLOBIN 11.7 gm/dL (13.2-17.3); MEAN CORPUSCULAR HEMOGLOBIN 30.4 pg (26.0-30.0); MEAN CORPUSCULAR HGB CONC 33.8 pg (28.0-36.0); MEAN PLATELET VOLUME 10.4 fl; NEUTROPHILE ABSOLUTE 3.4 Th/cmm (1.8-8.0); RED BLOOD COUNT 3.85 Mil/cmm (4.30-5.70); RED CELL DISTRIBUTION WIDTH 12.7 % (11.5-20.0)
[2016-09-20] MEDS: INSULIN ASPART SLIDING SCALE 100 UNITS/ML UNIT SUBQ SCH ×2 (06:37→11:25)
[2016-09-20 07:22] LABS: INR 1.02 (0.5-1.4); PROTHROMBIN TIME (TEST) 10.6 SECONDS (9.5-11.5)
--- NOTE | 2016-09-20 08:15 | General Progress Note ---
Subjective - Review of Systems Service Date: 09/20/16 Subjective: Patient was seen and examined. Denies any abdominal pain nausea or vomiting this morning. no new complaints. complains of numbness to the lower extremities. Patient to be scheduled for MRI cervical spine, thoracic spine, and lumbar spine and MRI head. Objective - Results Result Diagrams: 09/20/16 05:48 09/18/16 05:23 Recent Labs: Laboratory Last Values WBC 5.0 Th/cmm (4.8-10.8) D 09/20/16 05:48 RBC 3.85 Mil/cmm (4.30-5.70) L 09/20/16 05:48 Hgb 11.7 gm/dL (13.2-17.3) L 09/20/16 05:48 Hct 34.7 % (39.0-49.0) L 09/20/16 05:48 MCV 90.0 fl (80-99) 09/20/16 05:48 MCH 30.4 pg (26.0-30.0) H 09/20/16 05:48 MCHC Differential 33.8 pg (28.0-36.0) 09/20/16 05:48 RDW 12.7 % (11.5-20.0) 09/20/16 05:48 Plt Count Th/cmm (150-400) 09/20/16 05:48 MPV 10.4 fl 09/20/16 05:48 Neutrophils % 68.0 % (40.0-80.0) 09/20/16 05:48 Lymphocytes % 25.2 % (20.0-50.0) 09/20/16 05:48 Monocytes % 5.9 % (2.0-10.0) 09/20/16 05:48 Eosinophils % 0.6 % (0.0-5.0) 09/20/16 05:48 Basophils % 0.3 % (0.0-2.0) 09/20/16 05:48 ESR 35 mm/hr (0-20) H 09/18/16 05:23 PT 10.6 SECONDS (9.5-11.5) 09/20/16 05:48 INR 1.02 (0.5-1.4) 09/20/16 05:48 PTT (Actin FS) 24.0 SECONDS (26.0-38.0) L 09/19/16 18:36 Sodium 133 mEq/L (136-145) L 09/18/16 05:23 Potassium 4.2 mEq/L (3.5-5.1) 09/18/16 05:23 Chloride 100 mEq/L (98-107) 09/18/16 05:23 Carbon Dioxide 29.1 mEq/L (21.0-31.0) 09/18/16 05:23 Anion Gap 8.1 (7.0-16.0) 09/18/16 05:23 BUN 12 mg/dL (7-25) 09/18/16 05:23 Creatinine 0.9 mg/dL (0.7-1.3) 09/18/16 05:23 Est GFR ( Amer) > 60.0 ml/min (>90) 09/18/16 05:23 Est GFR (Non-Af Amer) > 60.0 ml/min 09/18/16 05:23 BUN/Creatinine Ratio 13.3 09/18/16 05:23 Glucose 190 mg/dL (70-105) H 09/18/16 05:23 POC Glucose 110 MG/DL (70 - 105) H 09/20/16 05:56 Calcium 9.6 mg/dL (8.6-10.3) 09/18/16 05:23 C-Reactive Protein < 0.2 mg/dL (0.0-0.9) 09/18/16 05:23 Triglycerides 192 mg/dL (<150) H 09/17/16 06:00 Cholesterol 161 mg/dL (<200) 09/17/16 06:00 LDL Cholesterol Direct 108 mg/dL (75-193) 09/17/16 06:00 HDL Cholesterol 27 mg/dL (23-92) 09/17/16 06:00 Free T4 1.40 ng/dL (0.82-1.77) 09/18/16 05:23 TSH 1.32 uIU/ml (0.34-5.60) 09/18/16 05:23 Urine Source MIDSTREAM 09/16/16 18:15 Urine Color YELLOW 09/16/16 18:15 Urine Clarity CLEAR (CLEAR) 09/16/16 18:15 Urine pH 6.0 (4.6 - 8.0) 09/16/16 18:15 Ur Specific [place] 1.010 (1.005-1.030) 09/16/16 18:15 Urine Protein NEGATIVE mg/dL (NEGATIVE) 09/16/16 18:15 Urine Glucose (UA) >=1000 mg/dL (NEGATIVE) H 09/16/16 18:15 Urine Ketones NEGATIVE mg/dL (NEGATIVE) 09/16/16 18:15 Urine Blood NEGATIVE (NEGATIVE) 09/16/16 18:15 Urine Nitrate NEGATIVE (NEGATIVE) 09/16/16 18:15 Urine Bilirubin NEGATIVE (NEGATIVE) 09/16/16 18:15 Urine Urobilinogen 0.2 E.U./dL (0.2 - 1.0) 09/16/16 18:15 Ur Leukocyte Esterase NEGATIVE (NEGATIVE) 09/16/16 18:15 Urine RBC NONE SEEN /hpf (0-5) 09/16/16 18:15 Urine WBC 0-2 /hpf (0-5) 09/16/16 18:15 Ur Epithelial Cells FEW /lpf (FEW) 09/16/16 18:15 Urine Bacteria FEW /hpf (NONE SEEN) 09/16/16 18:15 RPR NONREACTIVE (NONREACTIVE) 09/16/16 18:26 Hepatitis A IgM Ab Negative (Negative) 09/17/16 06:00 Hep Bs Antigen Negative (Negative) 09/17/16 06:00 Hep B Core IgM Ab Negative (Negative) 09/17/16 06:00 Hepatitis C Antibody <0.1 s/co ratio (0.0-0.9) 09/17/16 06:00 HIV 1&2 Antibody Screen NEGATIVE (NEG) 09/17/16 06:00 - Physical Exam Vitals and I&O: Vital Signs Temp 98.4 F 09/20/16 04:00 Pulse 86 09/20/16 04:00 Resp 18 09/20/16 04:00 BP 128/83 09/20/16 04:00 Pulse Ox 97 09/20/16 04:00 Intake & Output 09/19/16 09/20/16 09/20/16 18:59 06:59 18:59 Intake Total 974.167 300 Balance 974.167 300 Weight (lbs) 61.915 kg Intake: Intake, IV Amount 974.167 Sodium Chloride 0.9% 1, 974.167 000 ml @ 50 mls/hr IV . Q20H [facility] Rx#:[id number] Oral 300 Other: # Voids 3 Active Medications: Current Medications Acetaminophen (Tylenol) 650 mg PO Q6H PRN PRN Reason: FOR PAIN Stop: 11/16/16 01:24 Gabapentin (Neurontin) 100 mg PO TID [facility] Stop: 11/17/16 08:59 Last Admin: 09/19/16 21:32 Dose: 100 mg Glipizide (Glucotrol) 10 mg PO QDAC [facility] Stop: 11/16/16 08:59 Last Admin: 09/20/16 06:39 Dose: Not Given Sodium Chloride (Nacl 0.9%) 1,000 mls @ 50 mls/hr IV .Q20H [facility] Stop: 11/16/16 01:23 Last Admin: 09/19/16 13:30 Dose: 50 mls/hr Insulin Aspart (Novolog Insulin Sliding Scale) 0 units SUBQ ACHS [facility] PRN Reason: Protocol Stop: 11/15/16 21:05 Last Admin: 09/20/16 06:37 Dose: Not Given Polyethylene Glycol (Miralax) 17 gm PO DAILY [facility] Stop: 11/16/16 14:14 Last Admin: 09/19/16 08:58 Dose: 17 gm General: Alert, Oriented x3, Cooperative, No acute distress HEENT: Atraumatic, PERRLA, EOMI Neck: Supple Cardiovascular: Regular rate, Normal S1, Normal S2 Lungs: Clear to auscultation Abdomen: Bowel sounds, Soft Extremities: no Clubbing, no Cyanosis, no Edema Assessment/Plan - Problem List Patient Problems: All Active Problems Weakness of lower extremity (Acute) R29.898 Abdominal pain (Acute) R10.9 Diabetes mellitus (Acute) E11.9 Diabetic gastroparesis (Acute) E11.43, K31.84 Diarrhea (Acute) R19.7 Gastroenteritis (Acute) K52.9 Hyperglycemia (Acute) R73.9 - Assessment Assessment: abdominal pain -- appreciate GI note. patient for possible colonoscopy outpatient versus inpatient. diabetic peripheral neuropathy ... on neurontin 100mg PO TID Diabetes out of control ... will order diabetic education with employee relations consultant. will continue glipizide 10mg PO daily. DC metformin lower extremity weakness ... appreciate workup with neurology. Will awaiting results. MRI's today std exposure ... appreciate ID note. workup pending. - Plan Plan: abdominal pain -- appreciate GI note. Inpatient versus outpatient. may be reaction to metformin. For colonoscopy. diabetic peripheral neuropathy ... will start patient on neurontin 100mg PO TID Diabetes out of control ... will order diabetic education with employee relations consultant. will continue glipizide 10mg PO daily. DC metformin lower extremity weakness ... appreciate workup with neurology. Will awaiting results. For MRI head this morning. std exposure ... appreciate ID note. lab results pending. discharge planning. Nutritional Asmnt/Malnutr-PDOC - Dietary Evaluation Malnutrition Findings (Please click <Entered> for more info): Nutritional Asmnt/Malnutrition Start: 09/17/16 12: 58 Text: Status: Complete Freq: Document 09/17/16 15:14 [facility] (Rec: 09/17/16 15:28 [facility] [email or web address]) Nutritional Asmnt/Malnutrition Patient General Information Nutritional Screening Consult Diagnosis Lower extremity weakness Pertinent Medical Hx/Surgical Hx Constipation, hx exposure to STD's, DM Subjective Information Nutrition Consult for DM received and completed. Pt is a 51-year-old male admitted with chief complaint of lower extremity weakness and difficulty walking. Pt was awake and alert during time of visit. Pt denies nausea or vomiting but reports constipation for 5 days. Pt declined prune juice. Pt is unsure of wt changes or his UBW. Pt reports that swallowing can be difficulty because it feels stuck in his chest sometimes, but not always. Pt appears well nourished with no signs of muscle or fat depletion. Pt declined diet education. Current Diet Order/ Nutrition Support [facility] GM Patient / S.O Can Pertinent Medications Glucotrol, Novolog, Miralax, NaCl 0.9% Pertinent Labs (09/16) Glucose 333H (09/17) Glucose 239H, Na 135L ( improved), Triglyercides 192H Nutritional Hx/Data Height 1.65 m Height (Calculated Centimeters) 165.1 Current Weight (lbs) 61.961 kg Weight (Calculated Kilograms) 62.0 Weight (Calculated Grams) 24904.7 [place] Body Weight 136 % [place] Body Weight 100 Recent Weight Change No Weight Status Approriate GI Symptoms GI Symptoms Constipation Difficult in: Swallowing Food Allergies No Cultural/Ethnic/Orthodox Belief No cultural or mormonism preferences noted. Skin Integrity/Comment: Aaron 21. Skin intact. Current %PO Good (75-100%) Estimated Nutritional Goals BEE in Kcals: Using Current wt Calories/Kcals/Kg Based on current wt 62 kg Kcals Calculated 0339-5979 kcals/day (25-30 kcals/kg) Protein: Using Current wt Protein g/kg: Based on current wt 62 kg Protein Calculated 62 gm/day (1 gm/kg) Fluid: ml 5589-9481 ml/day (30-35 ml/kg) Nutritional Problem 1. Problem Problem Altered nutrition-related laboratory value related to Etiology DM or possible inconsistent carbohydrate intake as evidenced by Signs/Symptoms: admitting glucose 333 mg/dl. Malnutrition Alert Protein-Calorie Malnutrition N/A Is there a minimum of two criteria No selected? Query Text:Check all the applicable criteria. A minimum of two criteria are recommended for diagnosis of either severe or non-severe malnutrition. Malnutrition Related to Morbid Obesity Malnutrition related to morbid obesity No Intervention/Recommendation Recommendations by RD Dietary Education by RD1 Comments 1. Continue with current diet as it is adequate to meet estimated nutritional needs. Provide diet education at follow up, as able. 2. Consider swallow evaluation as pt reports difficulty. 3. Continue with bowel regimen . FNS to provide prune juice PRN. Expected Outcomes/Goals Expected Outcomes/Goals Blood glucose will trend towards desired parameters. Physician Parameters for PEM Normal Weight % 90% - 110% (Normal) Body Mass Index (BMI) 19 - 24 (Normal)
[2016-09-20] MEDS: POLYETHYLENE GLYCOL 3350 17 GM PACK PO SCH (08:59)
[2016-09-20] MEDS: Sodium Chloride 0.9% 1,000 ML IV SCH (09:39)
--- NOTE | 2016-09-20 10:47 | Diagnostic Imaging Report ---
CHEST X-RAY: AP view INDICATION: Shortness of breath COMPARISON: 09/08/2016 FINDINGS: Mild chronic lung changes are noted. There is no focal consolidation or pleural effusions The heart is normal in size. The osseous structures demonstrate no acute abnormalities. IMPRESSION: No acute cardiopulmonary disease.
[2016-09-21 05:12] LABS: FOLIC ACID 14.1 ng/mL (>3.0)
--- NOTE | 2016-09-21 08:43 | Discharge Summary ---
General Discharge Summary - Discharge Summary Date of Admission: 09/16/16 Admitting Diagnosis: lower extremity weakness Patient Problems: All Active Problems Abdominal pain (Acute) R10.9 Diabetes mellitus (Acute) E11.9 Diabetic gastroparesis (Acute) E11.43, K31.84 Diarrhea (Acute) R19.7 Gastroenteritis (Acute) K52.9 Hyperglycemia (Acute) R73.9 Weakness of lower extremity (Acute) R29.898 Discharge Date: 09/20/16 Discharge Diagnosis: see above Laboratory Findings: Laboratory Tests 09/16/16 09/17/16 09/17/16 21:22 05:45 06:00 WBC RBC Hgb Hct MCV MCH MCHC Differential RDW Plt Count MPV Neutrophils % Lymphocytes % Monocytes % Eosinophils % Basophils % ESR PT INR PTT (Actin FS) Sodium 135 L Potassium 4.0 Chloride 103 Carbon Dioxide 27.5 Anion Gap 8.5 BUN 18 Creatinine 0.9 Est GFR ( Amer) > 60.0 Est GFR (Non-Af Amer) > 60.0 BUN/Creatinine Ratio 20.0 Glucose 239 H POC Glucose 232 H 237 H Calcium 9.6 C-Reactive Protein Triglycerides Cholesterol LDL Cholesterol Direct HDL Cholesterol Vitamin B12 Folic Acid Free T4 TSH RPR Hepatitis A IgM Ab Hep Bs Antigen Hep B Core IgM Ab Hepatitis C Antibody HIV 1&2 Antibody Screen 09/17/16 09/17/16 09/17/16 06:00 06:00 06:00 WBC RBC Hgb Hct MCV MCH MCHC Differential RDW Plt Count MPV Neutrophils % Lymphocytes % Monocytes % Eosinophils % Basophils % ESR PT INR PTT (Actin FS) Sodium Potassium Chloride Carbon Dioxide Anion Gap BUN Creatinine Est GFR ( Amer) Est GFR (Non-Af Amer) BUN/Creatinine Ratio Glucose POC Glucose Calcium C-Reactive Protein Triglycerides 192 H Cholesterol 161 LDL Cholesterol Direct 108 HDL Cholesterol 27 Vitamin B12 Folic Acid Free T4 TSH 0.91 RPR Hepatitis A IgM Ab Negative Hep Bs Antigen Negative Hep B Core IgM Ab Negative Hepatitis C Antibody <0.1 HIV 1&2 Antibody Screen 09/17/16 09/17/16 09/17/16 06:00 11:29 14:53 WBC RBC Hgb Hct MCV MCH MCHC Differential RDW Plt Count MPV Neutrophils % Lymphocytes % Monocytes % Eosinophils % Basophils % ESR PT INR PTT (Actin FS) Sodium Potassium Chloride Carbon Dioxide Anion Gap BUN Creatinine Est GFR ( Amer) Est GFR (Non-Af Amer) BUN/Creatinine Ratio Glucose POC Glucose 239 H 83 Calcium C-Reactive Protein Triglycerides Cholesterol LDL Cholesterol Direct HDL Cholesterol Vitamin B12 Folic Acid Free T4 TSH RPR Hepatitis A IgM Ab Hep Bs Antigen Hep B Core IgM Ab Hepatitis C Antibody HIV 1&2 Antibody Screen NEGATIVE 09/17/16 09/17/16 09/18/16 16:35 22:26 05:23 WBC RBC Hgb Hct MCV MCH MCHC Differential RDW Plt Count MPV Neutrophils % Lymphocytes % Monocytes % Eosinophils % Basophils % ESR PT INR PTT (Actin FS) Sodium 133 L Potassium 4.2 Chloride 100 Carbon Dioxide 29.1 Anion Gap 8.1 BUN 12 Creatinine 0.9 Est GFR ( Amer) > 60.0 Est GFR (Non-Af Amer) > 60.0 BUN/Creatinine Ratio 13.3 Glucose 190 H POC Glucose 96 148 H Calcium 9.6 C-Reactive Protein Triglycerides Cholesterol LDL Cholesterol Direct HDL Cholesterol Vitamin B12 Folic Acid Free T4 TSH RPR Hepatitis A IgM Ab Hep Bs Antigen Hep B Core IgM Ab Hepatitis C Antibody HIV 1&2 Antibody Screen 09/18/16 09/18/16 09/18/16 05:23 05:23 05:23 WBC RBC Hgb Hct MCV MCH MCHC Differential RDW Plt Count MPV Neutrophils % Lymphocytes % Monocytes % Eosinophils % Basophils % ESR 35 H PT INR PTT (Actin FS) Sodium Potassium Chloride Carbon Dioxide Anion Gap BUN Creatinine Est GFR ( Amer) Est GFR (Non-Af Amer) BUN/Creatinine Ratio Glucose POC Glucose Calcium C-Reactive Protein < 0.2 Triglycerides Cholesterol LDL Cholesterol Direct HDL Cholesterol Vitamin B12 260 Folic Acid 14.1 Free T4 TSH RPR Hepatitis A IgM Ab Hep Bs Antigen Hep B Core IgM Ab Hepatitis C Antibody HIV 1&2 Antibody Screen 09/18/16 09/18/16 09/18/16 05:23 05:23 05:23 WBC RBC Hgb Hct MCV MCH MCHC Differential RDW Plt Count MPV Neutrophils % Lymphocytes % Monocytes % Eosinophils % Basophils % ESR PT INR PTT (Actin FS) Sodium Potassium Chloride Carbon Dioxide Anion Gap BUN Creatinine Est GFR ( Amer) Est GFR (Non-Af Amer) BUN/Creatinine Ratio Glucose POC Glucose Calcium C-Reactive Protein Triglycerides Cholesterol LDL Cholesterol Direct HDL Cholesterol Vitamin B12 Folic Acid Free T4 1.40 TSH 1.32 RPR NONREACTIVE Hepatitis A IgM Ab Hep Bs Antigen Hep B Core IgM Ab Hepatitis C Antibody HIV 1&2 Antibody Screen 09/18/16 09/18/16 09/18/16 06:40 11:38 16:33 WBC RBC Hgb Hct MCV MCH MCHC Differential RDW Plt Count MPV Neutrophils % Lymphocytes % Monocytes % Eosinophils % Basophils % ESR PT INR PTT (Actin FS) Sodium Potassium Chloride Carbon Dioxide Anion Gap BUN Creatinine Est GFR ( Amer) Est GFR (Non-Af Amer) BUN/Creatinine Ratio Glucose POC Glucose 180 H 195 H 193 H Calcium C-Reactive Protein Triglycerides Cholesterol LDL Cholesterol Direct HDL Cholesterol Vitamin B12 Folic Acid Free T4 TSH RPR Hepatitis A IgM Ab Hep Bs Antigen Hep B Core IgM Ab Hepatitis C Antibody HIV 1&2 Antibody Screen 09/18/16 09/19/16 09/19/16 21:03 05:55 11:18 WBC RBC Hgb Hct MCV MCH MCHC Differential RDW Plt Count MPV Neutrophils % Lymphocytes % Monocytes % Eosinophils % Basophils % ESR PT INR PTT (Actin FS) Sodium Potassium Chloride Carbon Dioxide Anion Gap BUN Creatinine Est GFR ( Amer) Est GFR (Non-Af Amer) BUN/Creatinine Ratio Glucose POC Glucose 181 H 123 H 138 H Calcium C-Reactive Protein Triglycerides Cholesterol LDL Cholesterol Direct HDL Cholesterol Vitamin B12 Folic Acid Free T4 TSH RPR Hepatitis A IgM Ab Hep Bs Antigen Hep B Core IgM Ab Hepatitis C Antibody HIV 1&2 Antibody Screen 09/19/16 09/19/16 09/19/16 16:17 18:36 21:34 WBC RBC Hgb Hct MCV MCH MCHC Differential RDW Plt Count MPV Neutrophils % Lymphocytes % Monocytes % Eosinophils % Basophils % ESR PT 10.7 INR 1.03 PTT (Actin FS) 24.0 L Sodium Potassium Chloride Carbon Dioxide Anion Gap BUN Creatinine Est GFR ( Amer) Est GFR (Non-Af Amer) BUN/Creatinine Ratio Glucose POC Glucose 102 152 H Calcium C-Reactive Protein Triglycerides Cholesterol LDL Cholesterol Direct HDL Cholesterol Vitamin B12 Folic Acid Free T4 TSH RPR Hepatitis A IgM Ab Hep Bs Antigen Hep B Core IgM Ab Hepatitis C Antibody HIV 1&2 Antibody Screen 09/20/16 09/20/16 09/20/16 05:48 05:48 05:56 WBC 5.0 D RBC 3.85 L Hgb 11.7 L Hct 34.7 L MCV 90.0 MCH 30.4 H MCHC Differential 33.8 RDW 12.7 Plt Count MPV 10.4 Neutrophils % 68.0 Lymphocytes % 25.2 Monocytes % 5.9 Eosinophils % 0.6 Basophils % 0.3 ESR PT 10.6 INR 1.02 PTT (Actin FS) Sodium Potassium Chloride Carbon Dioxide Anion Gap BUN Creatinine Est GFR ( Amer) Est GFR (Non-Af Amer) BUN/Creatinine Ratio Glucose POC Glucose 110 H Calcium C-Reactive Protein Triglycerides Cholesterol LDL Cholesterol Direct HDL Cholesterol Vitamin B12 Folic Acid Free T4 TSH RPR Hepatitis A IgM Ab Hep Bs Antigen Hep B Core IgM Ab Hepatitis C Antibody HIV 1&2 Antibody Screen 09/20/16 10:40 WBC RBC Hgb Hct MCV MCH MCHC Differential RDW Plt Count MPV Neutrophils % Lymphocytes % Monocytes % Eosinophils % Basophils % ESR PT INR PTT (Actin FS) Sodium Potassium Chloride Carbon Dioxide Anion Gap BUN Creatinine Est GFR ( Amer) Est GFR (Non-Af Amer) BUN/Creatinine Ratio Glucose POC Glucose 175 H Calcium C-Reactive Protein Triglycerides Cholesterol LDL Cholesterol Direct HDL Cholesterol Vitamin B12 Folic Acid Free T4 TSH RPR Hepatitis A IgM Ab Hep Bs Antigen Hep B Core IgM Ab Hepatitis C Antibody HIV 1&2 Antibody Screen Hospital Course: 51 year old male who presents to [facility] ER for numbness and weakness to his lower extremities for the past few days. Patient was noted to walk into the ER unassisted but states difficulty only. Patient has been having difficulty with urination and has been constipated for the past 5 days. was recently discharged from the hospital for abdominal, nausea nad vomiting, diarrhea. Patient admits that he was admitted to [facility] on 08/31/16 for abdominal pain. States that he was exposed to syphilis and gonorrhea about 20 years ago but has never been treated for this. States that his sexual partner at the time told him she had STD's. Treatment: Patient improved during his hospital stay. His lower extremity weakness had improved. Patient was seen and evaluated by Neurology. Please see dictated report. Patient was advised to have outpatient MRI's to further evaluate for his lower extremity weakness. Patient abdominal pain with constipation also improved during his hospital stay. Patient was advised to have a colonoscopy as outpatient and was to follow up with his regular physician to arrange for this. Patient hyperglycemia also improved. Patient was placed on Glipizide and Metformin was discontinue. Patient also developed neuropathy secondary to diabetes and was placed on gabapentin 100mg PO TID. patient advised to follow up with his regular physician. Condition at Discharge: Stable Disposition: PT DISCHARGED HOME Home Medications: Home Medication Medication Instructions Recorded Type Metformin HCl 850 mg PO BID 09/08/16 History Acetaminophen [Tylenol] 650 mg PO Q6H PRN tab 09/20/16 Rx Gabapentin [Neurontin*] 100 mg PO TID cap 09/20/16 Rx Glipizide [Glucotrol] 10 mg PO QDAC tab 09/20/16 Rx Consults and Follow-Up: Norman Calvillo [Primary Care Provider] - Instructions: Type 2 Diabetes Mellitus, Adult, Diabetic Neuropathy
== END 2016-09-20 14:05 | disposition home or self-care (01) | DRG 48 ==
LOC: ER 17:31 → MSI 20:15
PROVIDERS: ADMIT Family Medicine; ATTEND Family Medicine
DX: E11.42 Type 2 diabetes mellitus with diabetic polyneuropathy (principal); G82.20 Paraplegia, unspecified; E11.65 Type 2 diabetes mellitus with hyperglycemia; K52.9 Noninfective gastroenteritis and colitis, unspecified; K59.00 Constipation, unspecified; K31.84 Gastroparesis; F20.9 Schizophrenia, unspecified; M62.81 Muscle weakness (generalized); A53.9 Syphilis, unspecified; Z20.2 Contact with and (suspected) exposure to infections with a predominantly sexual mode of transmission; R29.898 Other symptoms and signs involving the musculoskeletal system; Z80.9 Family history of malignant neoplasm, unspecified; Z79.84 Long term (current) use of oral hypoglycemic drugs
CPT/HCPCS: 36415-UA; 71010-TC; 80048-TC; 80061-TC; 80074-90; 81001-TC; 82607-90; 82746-90; 82948-90; 84425-90; 84439-90; 84443-TC; 85025-TC; 85610-TC; 85652-TC; 86141-TC; 86592-TC; 86703-TC; 87491-90; 93005; J1815; J7030; Z7610